=== PATIENT | female | born 1965 | race Caucasian/White ===

== ENCOUNTER 2017-10-10 12:12 | Inpatient (IN) | payer BC, SELFPAY ==
[2017-10-10] VITALS (8 sets, daily range): BP systolic 136–151; BP diastolic 82–91; PULSE 53–93; RESP 18; TEMP 36.5–36.6; O2SAT 95–96; BMI 32.8
--- NOTE | 2017-10-10 12:20 | PCM.HP.STD ---
Problem List (1) NSTEMI (non-ST elevated myocardial infarction) Status: Acute History of Present Illness Date of Admission: 10/10/17 Chief Complaint: chest pain The patient is a 52 year old F no history of coronary artery disease awoke this morning with midsternal chest pain. Was associated with shortness of breath. Patient presented to [place] emergency room. There they did a workup which was unremarkable with the exception of an EKG that showed ST depressions in V2, V3 and V4. They did the backside EKG that showed less than [address] elevations in V7, V8 and V9. Patient received aspirin, nitroglycerin and 80 mg of Lovenox. Patient was transferred to [facility] per her request and lack of intervention at the outside hospital. Patient denies ever having had chest pain like this before. Patient states that her chest pain is currently improved but is still persistent. The chest pain does not radiate anywhere but is midsternal. Patient does endorse that she has been coughing for about the past month but denies that her chest pain is worse with cough. 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 Hypothyroidism E03.9 Insomnia G47.00 Osteoporosis M81.0 Allergies Cephalosporins Adverse Reaction (Verified 10/10/17 11:53) Rash Penicillins Adverse Reaction (Verified 10/10/17 11:53) Rash Home Medications: Ambulatory Orders Medication Instructions Recorded Alendronate Sodium [Alendronate 70 mg PO Q7D 10/10/17 Sodium] Celecoxib [Celecoxib] 100 mg PO BID PRN 10/10/17 Citalopram [Celexa] 20 mg PO DAILY 10/10/17 Cyclobenzaprine 10 mg PO TID PRN 10/10/17 Diazepam [Valium] 5 mg PO BID PRN 10/10/17 Hydrochlorothiazide [Hctz] 25 mg PO DAILY 10/10/17 Levothyroxine Sodium 112 mcg PO DAILY 10/10/17 Loratadine/Pseudoephedrine 5 - 120 mg PO DAILY 10/10/17 [Claritin-D 12 Hour Tablet] Metformin(XR) [Glucophage Xr] 500 mg PO DAILY 10/10/17 Montelukast Sodium [Singulair] 10 mg PO DAILY 10/10/17 Omeprazole [Omeprazole] 40 mg PO DAILY 10/10/17 Potassium Chloride [Klor-Con M20] 20 mg PO DAILY 10/10/17 traZODone [Desyrel] 100 mg PO DAILY 10/10/17 Surgical History: Surgical History (Last Updated 10/10/17 @ 12:28 by Ubaldo Obregon DO) H/O: hysterectomy Z90.710 Hx of cholecystectomy Z90.49 Psychiatric History: Anxiety Lives: Spouse/ Significant Other Smoking Status: Heavy Smoker (>10/day) Tobacco Use: Cigarettes Alcohol: None Drugs: None - *Family History Paternal History Items: Heart Disease Review of Systems Constitutional: Denies: Chills, Fever, Weight Change Eyes: Denies: Blurred vision, Double vision HEENT: Denies: Head Aches, Sinus Congestion, Sinus Drainage Cardiovascular: Reports: Chest Pain, Edema Respiratory: Reports: Shortness of Breath. Denies: Cough, Sputum production Gastrointestinal: Denies: Abdominal Pain, Nausea, Vomiting Genitourinary: Denies: Dysuria Musculoskeletal: Denies: Joint Pain, Joint Tenderness Skin: Denies: Dryness, Jaundice Neurological: Denies: Numbness, Tingling, Focal weakness Psychiatric: Denies: Anxiety, Depression Endocrine: Denies: Change in Body Habitus, Heat/ Cold Intolerance Hematologic/ Lymphatic: Denies: Easy Bruising, Easy Bleeding, Hx of blood clot VTE Information - Inpt Only VTE Present on Admission: No VTE Pharm Prophylaxis ordered?: Yes Patient Problems: Active and Suspected Problems (Last Updated 10/10/17 @ 12:27 by Ubaldo Obregon DO) Unstable angina (Acute) NSTEMI (non-ST elevated myocardial infarction) (Acute) - Physical Exam General: Alert, Cooperative, No apparent distress HEENT: Atraumatic, Normocephalic Oral: Moist Mucosa, No Gingival or Mucosal Lesions/ Ulcerations Neck: No Nodes, Thyroid Normal Size and Texture Lungs: Clear to auscultation, Normal air movement, No rhonchi, No wheeze Cardiovascular: Regular rate, Regular Rhythm, Normal S1, Normal S2, No murmurs Abdomen: Bowel Sounds Present, Soft, Non Tender, Non-Distended, No Hepato-splenomegaly Extremities: No edema, No Calf Tenderness Skin: No rashes, No breakdown Musculoskeletal: No Tenderness to Palpation of Joints or Extremities, No Muscle Wasting Psych/Mental Status: Appropriate, Flat Affect Oxygen Flow Rate (L/min) 2 Oxygen Delivery Method Nasal Cannula Weight: 81.556 kg Body Mass Index (BMI) 32.8 Laboratory Tests Past 24 Hrs 10/10/17 11:32 Troponin I Pending EKG reviewed and showed sinus bradycardia with heart rate of 54. ST depressions in V2 through V6. Reverse leads showed slight ST elevations less than 1 mm in V7, V8 and V9. Chest x-ray showed vague area of increased density over the left midlung could simply be overlapping shadows. CBC showed white count of 12.4, hemoglobin 14.8 and platelets of 203. BMP, creatinine of 1 sodium 139, potassium 4.1, magnesium 1.9. Troponin at [place] was 0.02. Troponin here is 0.854 Assessment/Plan All Active Problems (Last Updated 10/10/17 @ 12:27 by Ubaldo Obregon DO) Unstable angina (Acute) NSTEMI (non-ST elevated myocardial infarction) (Acute) 1. Non-ST elevation myocardial infarction Patient received Lovenox at the outside hospital as well as aspirin and nitroglycerin Patient is still having chest pain at this time but improved I will start patient on Nitropaste to see if that helps alleviate her chest pain. If not, then patient may require a nitroglycerin drip Currently patient be undergoing medical management with therapeutic dosing of Lovenox, metoprolol as her blood pressure and heart rate may allow. Continue to cycle troponins Discussed with Dr. Ramirez EKG findings and then updated via cortex the elevation of the troponins. 2. 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 4. DVT prophylaxis: Patient is anticoagulated. Code Visit OBSV E&M: 96563 Initial observation care L3
--- NOTE | 2017-10-10 12:32 | HP.PCM_ITS ---
Problem List (1) NSTEMI (non-ST elevated myocardial infarction) Status: Acute History of Present Illness Date of Admission: 10/10/17 Chief Complaint: chest pain The patient is a 52 year old F no history of coronary artery disease awoke this morning with midsternal chest pain. Was associated with shortness of breath. Patient presented to [place] emergency room. There they did a workup which was unremarkable with the exception of an EKG that showed ST depressions in V2, V3 and V4. They did the backside EKG that showed less than [address] elevations in V7, V8 and V9. Patient received aspirin, nitroglycerin and 80 mg of Lovenox. Patient was transferred to [facility] per her request and lack of intervention at the outside hospital. Patient denies ever having had chest pain like this before. Patient states that her chest pain is currently improved but is still persistent. The chest pain does not radiate anywhere but is midsternal. Patient does endorse that she has been coughing for about the past month but denies that her chest pain is worse with cough. 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 Hypothyroidism E03.9 Insomnia G47.00 Osteoporosis M81.0 Allergies Cephalosporins Adverse Reaction (Verified 10/10/17 11:53) Rash Penicillins Adverse Reaction (Verified 10/10/17 11:53) Rash Home Medications: Ambulatory Orders Medication Instructions Recorded Alendronate Sodium [Alendronate 70 mg PO Q7D 10/10/17 Sodium] Celecoxib [Celecoxib] 100 mg PO BID PRN 10/10/17 Citalopram [Celexa] 20 mg PO DAILY 10/10/17 Cyclobenzaprine 10 mg PO TID PRN 10/10/17 Diazepam [Valium] 5 mg PO BID PRN 10/10/17 Hydrochlorothiazide [Hctz] 25 mg PO DAILY 10/10/17 Levothyroxine Sodium 112 mcg PO DAILY 10/10/17 Loratadine/Pseudoephedrine 5 - 120 mg PO DAILY 10/10/17 [Claritin-D 12 Hour Tablet] Metformin(XR) [Glucophage Xr] 500 mg PO DAILY 10/10/17 Montelukast Sodium [Singulair] 10 mg PO DAILY 10/10/17 Omeprazole [Omeprazole] 40 mg PO DAILY 10/10/17 Potassium Chloride [Klor-Con M20] 20 mg PO DAILY 10/10/17 traZODone [Desyrel] 100 mg PO DAILY 10/10/17 Surgical History: Surgical History (Last Updated 10/10/17 @ 12:28 by Ubaldo Obregon DO) H/O: hysterectomy Z90.710 Hx of cholecystectomy Z90.49 Psychiatric History: Anxiety Lives: Spouse/ Significant Other Smoking Status: Heavy Smoker (>10/day) Tobacco Use: Cigarettes Alcohol: None Drugs: None - *Family History Paternal History Items: Heart Disease Review of Systems Constitutional: Denies: Chills, Fever, Weight Change Eyes: Denies: Blurred vision, Double vision HEENT: Denies: Head Aches, Sinus Congestion, Sinus Drainage Cardiovascular: Reports: Chest Pain, Edema Respiratory: Reports: Shortness of Breath. Denies: Cough, Sputum production Gastrointestinal: Denies: Abdominal Pain, Nausea, Vomiting Genitourinary: Denies: Dysuria Musculoskeletal: Denies: Joint Pain, Joint Tenderness Skin: Denies: Dryness, Jaundice Neurological: Denies: Numbness, Tingling, Focal weakness Psychiatric: Denies: Anxiety, Depression Endocrine: Denies: Change in Body Habitus, Heat/ Cold Intolerance Hematologic/ Lymphatic: Denies: Easy Bruising, Easy Bleeding, Hx of blood clot VTE Information - Inpt Only VTE Present on Admission: No VTE Pharm Prophylaxis ordered?: Yes Patient Problems: Active and Suspected Problems (Last Updated 10/10/17 @ 12:27 by Ubaldo Obergon DO ) Unstable angina (Acute) NSTEMI (non-ST elevated myocardial infarction) (Acute) - Physical Exam General: Alert, Cooperative, No apparent distress HEENT: Atraumatic, Normocephalic Oral: Moist Mucosa, No Gingival or Mucosal Lesions/ Ulcerations Neck: No Nodes, Thyroid Normal Size and Texture Lungs: Clear to auscultation, Normal air movement, No rhonchi, No wheeze Cardiovascular: Regular rate, Regular Rhythm, Normal S1, Normal S2, No murmurs Abdomen: Bowel Sounds Present, Soft, Non Tender, Non-Distended, No Hepato- splenomegaly Extremities: No edema, No Calf Tenderness Skin: No rashes, No breakdown Musculoskeletal: No Tenderness to Palpation of Joints or Extremities, No Muscle Wasting Psych/Mental Status: Appropriate, Flat Affect Oxygen Flow Rate (L/min) 2 Oxygen Delivery Method Nasal Cannula Weight: 81.556 kg Body Mass Index (BMI) 32.8 Laboratory Tests Past 24 Hrs 10/10/17 11:32 Troponin I Pending EKG reviewed and showed sinus bradycardia with heart rate of 54. ST depressions in V2 through V6. Reverse leads showed slight ST elevations less than 1 mm in V7, V8 and V9. Chest x-ray showed vague area of increased density over the left midlung could simply be overlapping shadows. CBC showed white count of 12.4, hemoglobin 14.8 and platelets of 203. BMP, creatinine of 1 sodium 139, potassium 4.1, magnesium 1.9. Troponin at [place] was 0.02. Troponin here is 0.854 Assessment/Plan All Active Problems (Last Updated 10/10/17 @ 12:27 by Ubaldo Obregon DO) Unstable angina (Acute) NSTEMI (non-ST elevated myocardial infarction) (Acute) 1. Non-ST elevation myocardial infarction * Patient received Lovenox at the outside hospital as well as aspirin and nitroglycerin * Patient is still having chest pain at this time but improved * I will start patient on Nitropaste to see if that helps alleviate her chest pain. If not, then patient may require a nitroglycerin drip * Currently patient be undergoing medical management with therapeutic dosing of Lovenox, metoprolol as her blood pressure and heart rate may allow. Continue to cycle troponins * Discussed with Dr. Ramirez EKG findings and then updated via cortex the elevation of the troponins. 2. 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 4. DVT prophylaxis: Patient is anticoagulated. Code Visit OBSV E&M: 39423 Initial observation care L3
--- NOTE | 2017-10-10 13:05 | EKG12_ITS ---
Test Reason : CP Blood Pressure : / mmHG Vent. Rate : 056 BPM Atrial Rate : 056 BPM P-R Int : 152 ms QRS Dur : 090 ms QT Int : 446 ms P-R-T Axes : 068 072 090 degrees QTc Int : 430 ms Sinus bradycardia with marked sinus arrhythmia Nonspecific ST abnormality Abnormal ECG No previous ECGs available Confirmed by JOSE MANUEL MUÑOZ, SAGE ([id number]), legal editor ANN MABRY ([id number] on 10/14/2017 3:57:53 PM Referred By: SHERRIE Confirmed By:SAGE RICHARD MD
--- NOTE | 2017-10-10 13:15 | PCM.CONS.C ---
Reason for Consult Date of Consultation: 10/10/17 Reason for Consultation: Chest discomfort. History of Present Illness: The patient is a 52 year old F no history of coronary artery disease awoke this morning with midsternal chest pain. Was associated with shortness of breath. Patient presented to [place] emergency room. There they did a workup which was unremarkable with the exception of an EKG that showed ST depressions in V2, V3 and V4. They did the backside EKG that showed less than [address] elevations in V7, V8 and V9. Patient received aspirin, nitroglycerin and 80 mg of Lovenox. Patient was transferred to [facility] per her request and lack of intervention at the outside hospital. Patient denies ever having had chest pain like this before. Patient states that her chest pain is currently improved but is still persistent. The chest pain does not radiate anywhere but is midsternal. Patient does endorse that she has been coughing for about the past month but denies that her chest pain is worse with cough. She has been under a fair amount of stress at home. She denies any previous neck arm or jaw discomfort suggest angina no dizziness or diaphoresis no near syncope or syncope and no palpitations. [ [] Past Medical History Allergies/Adverse Reactions: Allergies Cephalosporins Adverse Reaction (Verified 10/10/17 11:53) Rash Penicillins Adverse Reaction (Verified 10/10/17 11:53) Rash Home Medications: Ambulatory Orders Medication Instructions Recorded Alendronate Sodium [Alendronate 70 mg PO Q7D 10/10/17 Sodium] Celecoxib [Celecoxib] 100 mg PO BID PRN 10/10/17 Citalopram [Celexa] 20 mg PO DAILY 10/10/17 Cyclobenzaprine 10 mg PO TID PRN 10/10/17 Diazepam [Valium] 5 mg PO BID PRN 10/10/17 Hydrochlorothiazide [Hctz] 25 mg PO DAILY 10/10/17 Levothyroxine Sodium 112 mcg PO DAILY 10/10/17 Loratadine/Pseudoephedrine 5 - 120 mg PO DAILY 10/10/17 [Claritin-D 12 Hour Tablet] Metformin(XR) [Glucophage Xr] 500 mg PO DAILY 10/10/17 Montelukast Sodium [Singulair] 10 mg PO DAILY 10/10/17 Omeprazole [Omeprazole] 40 mg PO DAILY 10/10/17 Potassium Chloride [Klor-Con M20] 20 mg PO DAILY 10/10/17 traZODone [Desyrel] 100 mg PO DAILY 10/10/17 Psychiatric History: Anxiety - *Family History Paternal History Items: Heart Disease Lives: Spouse/ Significant Other Smoking Status: Heavy Smoker (>10/day) Tobacco Use: Cigarettes Alcohol: None Drugs: None Review of Systems - Review of Systems General: Denies: Fever, Night Sweats, Fatigue Cardiovascular: Reports: Chest Discomfort at Rest, Shortness of Breath. Denies: Chest Discomfort, Orthopnea, PND, Peripheral Edema, Palpitations, Lightheadedness, Dizziness, Near Syncope, Syncope Respiratory: Denies: Cough, Sputum Production, Hemoptysis Gastrointestinal: Denies: Hematemesis, Hematochezia, Melena Genitourinary: Denies: Dysuria, Hematuria Skin: Denies: Rash Subjectve: Pleasant lady no apparent distress. Objective: Vital Signs Temp Pulse Resp BP Pulse Ox 97.8 F 68 18 136/82 H 96 10/10/17 12:54 10/10/17 12:54 10/10/17 12:54 10/10/17 12:54 10/10/17 12:54 Oxygen Flow Rate (L/min) 2 Oxygen Delivery Method Room Air Weight: 179 lb 12.8 oz Body Mass Index (BMI) 32.8 General: Awake, Alert, Oriented x 3 HEENT: PERRL, EOMI, Sclera Non Icteric Neck: Supple, Good ROM, No Lymph Node Enlargement Lungs: Clear to auscultation Cardiovascular: Regular Rhythm, Normal S1, Normal S2, No Murmurs, No Rubs, No Gallops Vascular: No Carotid Bruits, Normal Femoral Pulses, Normal Radial Pulses, Normal Dorsalis Pedal Pulse, Normal Posterior Tibial Pulses Abdomen: Bowel Sounds Present, Soft, Non Tender, No HSM, No Organomegaly Extremities: No Cyanosis, No Clubbing, No edema Neurological: No Focal Motor or Sensory Deficit 10/10/17 11:32: Troponin I 0.854 H* Rhythm: EKG: Sinus bradycardia with T-wave inversions noted in leads V2 through V4. Assessment/Plan 1. Non-ST elevation myocardial infarction. She presents with new onset chest discomfort with radiation to the right arm. This discomfort together with the EKG changes is suggestive of new onset angina and cardiac troponin enzymes have ruled her in for a non-ST elevation myocardial infarction. My recommendations at this time would be as follows. Aspirin 81 mg Clopidogrel 300 mg now and 75 mg daily With suggest proceeding with cardiac catheterization within the next 24 hours. The risk benefits and alternatives have been explained to her she understands and agrees to proceed. This will be performed in a.m. High intensity statin Routine smoking cessation Lopressor 25 mg twice a day Thank you for allowing me to participate in the care of your patient. Please don't hesitate to call if any issues arise
--- NOTE | 2017-10-10 13:19 | CON.PCM_ITS ---
Reason for Consult Date of Consultation: 10/10/17 Reason for Consultation: Chest discomfort. History of Present Illness: The patient is a 52 year old F no history of coronary artery disease awoke this morning with midsternal chest pain. Was associated with shortness of breath. Patient presented to [place] emergency room. There they did a workup which was unremarkable with the exception of an EKG that showed ST depressions in V2, V3 and V4. They did the backside EKG that showed less than [address] elevations in V7, V8 and V9. Patient received aspirin, nitroglycerin and 80 mg of Lovenox. Patient was transferred to [facility] per her request and lack of intervention at the outside hospital. Patient denies ever having had chest pain like this before. Patient states that her chest pain is currently improved but is still persistent. The chest pain does not radiate anywhere but is midsternal. Patient does endorse that she has been coughing for about the past month but denies that her chest pain is worse with cough. She has been under a fair amount of stress at home. She denies any previous neck arm or jaw discomfort suggest angina no dizziness or diaphoresis no near syncope or syncope and no palpitations. [ [] Past Medical History Allergies/Adverse Reactions: Allergies Cephalosporins Adverse Reaction (Verified 10/10/17 11:53) Rash Penicillins Adverse Reaction (Verified 10/10/17 11:53) Rash Home Medications: Ambulatory Orders Medication Instructions Recorded Alendronate Sodium [Alendronate 70 mg PO Q7D 10/10/17 Sodium] Celecoxib [Celecoxib] 100 mg PO BID PRN 10/10/17 Citalopram [Celexa] 20 mg PO DAILY 10/10/17 Cyclobenzaprine 10 mg PO TID PRN 10/10/17 Diazepam [Valium] 5 mg PO BID PRN 10/10/17 Hydrochlorothiazide [Hctz] 25 mg PO DAILY 10/10/17 Levothyroxine Sodium 112 mcg PO DAILY 10/10/17 Loratadine/Pseudoephedrine 5 - 120 mg PO DAILY 10/10/17 [Claritin-D 12 Hour Tablet] Metformin(XR) [Glucophage Xr] 500 mg PO DAILY 10/10/17 Montelukast Sodium [Singulair] 10 mg PO DAILY 10/10/17 Omeprazole [Omeprazole] 40 mg PO DAILY 10/10/17 Potassium Chloride [Klor-Con M20] 20 mg PO DAILY 10/10/17 traZODone [Desyrel] 100 mg PO DAILY 10/10/17 Psychiatric History: Anxiety - *Family History Paternal History Items: Heart Disease Lives: Spouse/ Significant Other Smoking Status: Heavy Smoker (>10/day) Tobacco Use: Cigarettes Alcohol: None Drugs: None Review of Systems - Review of Systems General: Denies: Fever, Night Sweats, Fatigue Cardiovascular: Reports: Chest Discomfort at Rest, Shortness of Breath. Denies : Chest Discomfort, Orthopnea, PND, Peripheral Edema, Palpitations, Lightheadedness, Dizziness, Near Syncope, Syncope Respiratory: Denies: Cough, Sputum Production, Hemoptysis Gastrointestinal: Denies: Hematemesis, Hematochezia, Melena Genitourinary: Denies: Dysuria, Hematuria Skin: Denies: Rash Subjectve: Pleasant lady no apparent distress. Objective: Vital Signs Temp Pulse Resp BP Pulse Ox 97.8 F 68 18 136/82 H 96 10/10/17 12:54 10/10/17 12:54 10/10/17 12:54 10/10/17 12:54 10/10/17 12:54 Oxygen Flow Rate (L/min) 2 Oxygen Delivery Method Room Air Weight: 179 lb 12.8 oz Body Mass Index (BMI) 32.8 General: Awake, Alert, Oriented x 3 HEENT: PERRL, EOMI, Sclera Non Icteric Neck: Supple, Good ROM, No Lymph Node Enlargement Lungs: Clear to auscultation Cardiovascular: Regular Rhythm, Normal S1, Normal S2, No Murmurs, No Rubs, No Gallops Vascular: No Carotid Bruits, Normal Femoral Pulses, Normal Radial Pulses, Normal Dorsalis Pedal Pulse, Normal Posterior Tibial Pulses Abdomen: Bowel Sounds Present, Soft, Non Tender, No HSM, No Organomegaly Extremities: No Cyanosis, No Clubbing, No edema Neurological: No Focal Motor or Sensory Deficit 10/10/17 11:32: Troponin I 0.854 H* Rhythm: EKG: Sinus bradycardia with T-wave inversions noted in leads V2 through V4. Assessment/Plan 1. Non-ST elevation myocardial infarction. She presents with new onset chest discomfort with radiation to the right arm. This discomfort together with the EKG changes is suggestive of new onset angina and cardiac troponin enzymes have ruled her in for a non-ST elevation myocardial infarction. My recommendations at this time would be as follows. * Aspirin 81 mg * Clopidogrel 300 mg now and 75 mg daily * With suggest proceeding with cardiac catheterization within the next 24 hours. The risk benefits and alternatives have been explained to her she understands and agrees to proceed. This will be performed in a.m. * High intensity statin * Routine smoking cessation * Lopressor 25 mg twice a day * * Thank you for allowing me to participate in the care of your patient. Please don't hesitate to call if any issues arise
[2017-10-10] MEDS: Clopidogrel Bisulfate 300 MG Tablet PO (14:05)
[2017-10-10 15:17] LABS: Anion Gap 7 (5-15); BUN 20 mg/dL (7-18); BUN/Creat Ratio 20.4 RATIO (10-20); Calcium,Total 8.7 mg/dL (8.5-10.1); Chloride 105 mmol/L (98-107); Creatinine, Serum 0.98 mg/dL (0.55-1.02); EST Glomerular Filtration Rate 63 mL/min (>60); Est Glom Filt Rate - Afr Amer 76 mL/min (>60); Glucose 167 mg/dL (74-106); Potassium 4.1 mmol/L (3.5-5.1); Sodium Level 138 mmol/L (136-145)
[2017-10-10] MEDS: Nitroglycerin Oint 1 INCH PACKET TRANSDERM. ×2 (15:17→17:34)
[2017-10-10] MEDS: Acetaminophen 325 MG Tablet 650 MG PO (19:51)
[2017-10-10 22:26] LABS: Bedside Glucose 137 mg/dL (70-110)
[2017-10-10] MEDS: Enoxaparin 80 MG/0.8 ML Syringe SC (22:26)
[2017-10-10] MEDS: Metoprolol Tartrate 25 MG Tablet PO (22:26)
[2017-10-10] MEDS: traZODone 100 MG Tablet PO (22:26)
[2017-10-11] VITALS (39 sets, daily range): BP systolic 102–176; BP diastolic 65–155; PULSE 63–105; RESP 12–26; TEMP 36.5–37.1; O2SAT 93–98
[2017-10-11] MEDS: Nitroglycerin Oint 1 INCH PACKET TRANSDERM. ×4 (00:06→23:07)
[2017-10-11] MEDS: Acetaminophen 325 MG Tablet 650 MG PO (02:20)
[2017-10-11 05:34] LABS: Bacteria 0 SEEN /hpf (None Seen); White Blood Cells 0 SEEN /hpf (0-5)
[2017-10-11 05:39] LABS: Color, Urine Yellow (Yellow); Glucose, Dipstick Normal (Normal); Ketone-Dipstick Negative (Negative); Leukocyte Esterase-Dipstick Negative /ul (Negative); Nitrite-Dipstick Negative (Negative); Occult Blood-Urine 10 /ul (Negative); Protein-Dipstick Negative (Negative); Urine Bilirubin Dipstick Negative (Negative); Urine Clarity Clear (Clear); Urine Urobilinogen Normal (Normal)
[2017-10-11 05:53] LABS: Mucous, Urine 1+ /hpf (<or=2+); Red Blood Cells-Urine 0-5 SEEN /hpf (0-5); Squamous Epithelial Cells - UA 0-5 SEEN /hpf (5-10)
[2017-10-11 05:55] LABS: International Normalized Ratio 1.1
--- NOTE | 2017-10-11 05:55 | RAD_ITS ---
STUDY: X-RAY CHEST REASON FOR EXAM: Female, 52 years old. Chest pain, pre heart catheter TECHNIQUE: Single AP portable view of the chest. COMPARISON: None. FINDINGS: There are superimposed monitor leads. There are areas of hyperinflation. There is no focal parenchymal abnormality. There is no demonstrated pleural abnormality. Normal size heart. Normal mediastinum and jazlyn. Normal visualized pulmonary arteries. There is atherosclerotic calcification of the aortic arch with tortuosity. There are diffuse degenerative changes of the visualized thoracic spine. Normal visualized ribs, clavicles, and shoulders. There is no demonstrated abnormality of the visualized soft tissue structures of the upper abdomen. RAD/Chest 1 View IMPRESSION: Hyperinflation, compatible with post obstruction suspected. No pulmonary edema, congestive heart failure or confluent pneumonia. Electronically Signed: Anjelica Sesay MD at 6:14 EDT , Service support ,
[2017-10-11 05:56] LABS: Partial Thromboplast Time 37.2 Seconds (24.1-36.2)
[2017-10-11 06:02] LABS: Hematocrit 44.2 % (37-47); Hemoglobin 14.9 g/dl (12.0-15.0); Mean Corp Hgb Conc 33.7 g/gl (32-36); Mean Corpuscular Hgb 31.6 pg (27.0-32.0); Mean Corpuscular Volume 93.6 fL (81-99); Mean Platelet Vol. 11.4 fl (6.2-12.0); Platelet Count 190 K/mm3 (150-450); RBC Distribution Width CV 13.1 % (11.6-14.6); RBC Distribution Width SD 44.8 fl (35.1-43.9); Red Blood Count 4.72 M/mm3 (4.2-5.4); White Blood Count 11.3 K/mm3 (4.4-11.0)
[2017-10-11] MEDS: Levothyroxine 112 MCG Tablet PO (06:04)
[2017-10-11] MEDS: Metoprolol Tartrate 25 MG Tablet PO ×2 (06:05→21:15)
[2017-10-11] MEDS: Aspirin E.C. 81 MG Tablet PO (06:05)
[2017-10-11 06:11] LABS: Bedside Glucose 151 mg/dL (70-110)
[2017-10-11 06:19] LABS: Scan Indicated on CBC? Y/N NO
[2017-10-11] MEDS: Clopidogrel Bisulfate 75 MG Tablet PO (06:26)
[2017-10-11 06:30] LABS: AST(SGOT) 272 U/L (15-37); Alanine Aminotransfer ALT/SGPT 61 U/L (13-56); Albumin, Serum 3.1 g/dL (3.2-5.0); Alkaline Phosphatase 36 U/L (45-117); Anion Gap 8 (5-15); BUN 15 mg/dL (7-18); BUN/Creat Ratio 17.5 RATIO (10-20); Calcium,Total 8.6 mg/dL (8.5-10.1); Chloride 107 mmol/L (98-107); Cholesterol 159 mg/dL (200); Creatinine, Serum 0.86 mg/dL (0.55-1.02); EST Glomerular Filtration Rate 74 mL/min (>60); Est Glom Filt Rate - Afr Amer 89 mL/min (>60); Estimated Creatinine Clearance 59.15 ml/min; Globulin 3.1 g/dL (2.2-4.2); Glucose 141 mg/dL (74-106); High Density Lipoprotein 50 mg/dL; Protein, Total 6.2 g/dL (6.4-8.2); Sodium Level 144 mmol/L (136-145); Triglycerides 131 mg/dL; Very Low Density Lipoprotein 26 mg/dL (5-40)
[2017-10-11] MEDS: Albuterol 2.5 MG/3 ML VIAL.NEB. INHALATION ×4 (06:48→20:14)
--- NOTE | 2017-10-11 08:12 | PCM.PN.CARD ---
Subjectve: Patient seen and evaluated. Objective: Vital Signs Temp Pulse Resp BP Pulse Ox 97.7 F L 67 16 109/72 93 10/11/17 05:56 10/11/17 07:18 10/11/17 06:48 10/11/17 06:05 10/11/17 06:48 Oxygen Flow Rate (L/min) 2 Oxygen Delivery Method Room Air Weight: 179 lb 12.8 oz Body Mass Index (BMI) 32.8 Intake and Output for Last 24 Hours 10/09/17 10/10/17 10/11/17 23:59 23:59 23:59 Intake Total 120 / 120 420 / 420 Balance 120 / 120 420 / 420 General: Awake, Alert, Oriented x 3 HEENT: PERRL, EOMI, Sclera Non Icteric Neck: Supple, Good ROM, No Lymph Node Enlargement Lungs: Clear to auscultation Cardiovascular: Regular Rhythm, Normal S1, Normal S2, No Murmurs, No Rubs, No Gallops Vascular: No Carotid Bruits, Normal Femoral Pulses, Normal Radial Pulses, Normal Dorsalis Pedal Pulse, Normal Posterior Tibial Pulses Abdomen: Bowel Sounds Present, Soft, Non Tender, No HSM, No Organomegaly Extremities: No Cyanosis, No Clubbing, No edema Neurological: No Focal Motor or Sensory Deficit 10/10/17 11:32: Troponin I 0.854 H* 10/10/17 14:30: Troponin I 6.940 H* 10/10/17 14:30: Sodium 138, Potassium 4.1, Chloride 105, Carbon Dioxide 26.0, Anion Gap 7, BUN 20 H, Creatinine 0.98, Est GFR (MDRD) Af Amer 76, Est GFR (MDRD) Non-Af 63, BUN/Creatinine Ratio 20.4 H, Glucose 167 H, Calcium 8.7 10/10/17 17:28: Troponin I 34.700 H* 10/11/17 04:45: WBC 11.3 H, RBC 4.72, Hgb 14.9, Hct 44.2, MCV 93.6, MCH 31.6, MCHC 33.7, RDW 13.1, RDW Differential 44.8 H, Plt Count 190, MPV 11.4 10/11/17 04:45: Sodium 144, Potassium 4.0, Chloride 107, Carbon Dioxide 29.0, Anion Gap 8, BUN 15, Creatinine 0.86, Est GFR (MDRD) Af Amer 89, Est GFR (MDRD) Non-Af 74, BUN/Creatinine Ratio 17.5, Glucose 141 H, Calcium 8.6, Total Bilirubin 0.50, Triglycerides 131, Cholesterol 159, LDL Cholesterol 83, VLDL Cholesterol 26, HDL Cholesterol 50 10/11/17 04:45: PT 14.0, INR 1.1, APTT 37.2 H 10/11/17 05:10: Urine Color Yellow, Urine Clarity Clear, Urine pH 5.0, Ur Specific [place] 1.020, Urine Protein Negative, Urine Glucose (UA) Normal, Urine Ketones Negative, Urine Occult Blood 10 H, Urine Nitrite Negative, Urine Bilirubin Negative, Urine Urobilinogen Normal, Ur Leukocyte Esterase Negative, Urine RBC 0-5 SEEN, Urine WBC 0 SEEN Rhythm: EKG: ECHO: Stress Test: Cardiac Cath: PCI: CT Surgery: Holter monitor: EPS: PPM: CXR: Chest CT Scan: Medical Necessity - Tobacco Use Smoking Status: Current every day smoker Tobacco Use: Cigarettes Assessment/Plan 1. Non-ST elevation myocardial infarction. She presents with new onset chest discomfort with radiation to the right arm. This discomfort together with the EKG changes is suggestive of new onset angina and cardiac troponin enzymes have ruled her in for a non-ST elevation myocardial infarction. Patient underwent cardiac catheterization which demonstrated the following: Normal left main coronary artery. Left anterior descending artery with no significant disease. Left circumflex artery with large first obtuse marginal branch with proximal 80% stenosis and mid 90% stenosis. Dominant left circumflex artery with distal 75% stenosis. Nondominant right coronary artery. Reduced left ventricular systolic function with estimated ejection fraction of 40% and anterolateral hypokinesis. My recommendations at this time would be as follows. Aspirin 81 mg Clopidogrel 300 mg now and 75 mg daily High intensity statin Routine smoking cessation Lopressor 25 mg twice a day Patient would undergo angioplasty and stenting of the OM this morning and evaluation of the distal circumflex for possible angioplasty. Thank you for allowing me to participate in the care of your patient. Please don't hesitate to call if any issues arise
--- NOTE | 2017-10-11 08:15 | PN.CARD_ITS ---
Subjectve: Patient seen and evaluated. Objective: Vital Signs Temp Pulse Resp BP Pulse Ox 97.7 F L 67 16 109/72 93 10/11/17 05:56 10/11/17 07:18 10/11/17 06:48 10/11/17 06:05 10/11/17 06:48 Oxygen Flow Rate (L/min) 2 Oxygen Delivery Method Room Air Weight: 179 lb 12.8 oz Body Mass Index (BMI) 32.8 Intake and Output for Last 24 Hours 10/09/17 10/10/17 10/11/17 23:59 23:59 23:59 Intake Total 120 / 120 420 / 420 Balance 120 / 120 420 / 420 General: Awake, Alert, Oriented x 3 HEENT: PERRL, EOMI, Sclera Non Icteric Neck: Supple, Good ROM, No Lymph Node Enlargement Lungs: Clear to auscultation Cardiovascular: Regular Rhythm, Normal S1, Normal S2, No Murmurs, No Rubs, No Gallops Vascular: No Carotid Bruits, Normal Femoral Pulses, Normal Radial Pulses, Normal Dorsalis Pedal Pulse, Normal Posterior Tibial Pulses Abdomen: Bowel Sounds Present, Soft, Non Tender, No HSM, No Organomegaly Extremities: No Cyanosis, No Clubbing, No edema Neurological: No Focal Motor or Sensory Deficit 10/10/17 11:32: Troponin I 0.854 H* 10/10/17 14:30: Troponin I 6.940 H* 10/10/17 14:30: Sodium 138, Potassium 4.1, Chloride 105, Carbon Dioxide 26.0, Anion Gap 7, BUN 20 H, Creatinine 0.98, Est GFR (MDRD) Af Amer 76, Est GFR (MDRD ) Non-Af 63, BUN/Creatinine Ratio 20.4 H, Glucose 167 H, Calcium 8.7 10/10/17 17:28: Troponin I 34.700 H* 10/11/17 04:45: WBC 11.3 H, RBC 4.72, Hgb 14.9, Hct 44.2, MCV 93.6, MCH 31.6, MCHC 33.7, RDW 13.1, RDW Differential 44.8 H, Plt Count 190, MPV 11.4 10/11/17 04:45: Sodium 144, Potassium 4.0, Chloride 107, Carbon Dioxide 29.0, Anion Gap 8, BUN 15, Creatinine 0.86, Est GFR (MDRD) Af Amer 89, Est GFR (MDRD) Non-Af 74, BUN/Creatinine Ratio 17.5, Glucose 141 H, Calcium 8.6, Total Bilirubin 0.50, Triglycerides 131, Cholesterol 159, LDL Cholesterol 83, VLDL Cholesterol 26, HDL Cholesterol 50 10/11/17 04:45: PT 14.0, INR 1.1, APTT 37.2 H 10/11/17 05:10: Urine Color Yellow, Urine Clarity Clear, Urine pH 5.0, Ur Specific [place] 1.020, Urine Protein Negative, Urine Glucose (UA) Normal, Urine Ketones Negative, Urine Occult Blood 10 H, Urine Nitrite Negative, Urine Bilirubin Negative, Urine Urobilinogen Normal, Ur Leukocyte Esterase Negative, Urine RBC 0-5 SEEN, Urine WBC 0 SEEN Rhythm: EKG: ECHO: Stress Test: Cardiac Cath: PCI: CT Surgery: Holter monitor: EPS: PPM: CXR: Chest CT Scan: Medical Necessity - Tobacco Use Smoking Status: Current every day smoker Tobacco Use: Cigarettes Assessment/Plan 1. Non-ST elevation myocardial infarction. She presents with new onset chest discomfort with radiation to the right arm. This discomfort together with the EKG changes is suggestive of new onset angina and cardiac troponin enzymes have ruled her in for a non-ST elevation myocardial infarction. Patient underwent cardiac catheterization which demonstrated the following: Normal left main coronary artery. Left anterior descending artery with no significant disease. Left circumflex artery with large first obtuse marginal branch with proximal 80 % stenosis and mid 90% stenosis. Dominant left circumflex artery with distal 75% stenosis. Nondominant right coronary artery. Reduced left ventricular systolic function with estimated ejection fraction of 40% and anterolateral hypokinesis. My recommendations at this time would be as follows. * Aspirin 81 mg * Clopidogrel 300 mg now and 75 mg daily * High intensity statin * Routine smoking cessation * Lopressor 25 mg twice a day * * * Patient would undergo angioplasty and stenting of the OM this morning and evaluation of the distal circumflex for possible angioplasty. * Thank you for allowing me to participate in the care of your patient. Please don't hesitate to call if any issues arise
[2017-10-11 08:56] LABS: ACT Activated Clotting Time 213 sec (74-137)
--- NOTE | 2017-10-11 09:00 | EKG12_ITS ---
Test Reason : POST PCI Blood Pressure : / mmHG Vent. Rate : 065 BPM Atrial Rate : 065 BPM P-R Int : 140 ms QRS Dur : 084 ms QT Int : 446 ms P-R-T Axes : 072 071 086 degrees QTc Int : 463 ms Normal sinus rhythm Nonspecific ST abnormality Abnormal ECG When compared with ECG of 10-OCT-2017 11:13, MANUAL COMPARISON REQUIRED, DATA IS UNCONFIRMED Confirmed by JOSE MANUEL MUÑOZ, SAGE ([id number]), editorial manager ANN MABRY ([id number]) on 10/19/2017 1:12:04 PM Referred By: PERLITA Confirmed By:SAGE RICHARD MD
--- NOTE | 2017-10-11 09:10 | CASEMGMT ---
According to the [place] website, the following are in-network tertiary facilities: [facility], [facility], [place], [facility], [facility], [facility], [facility], and . Cady BECKFORD CM
--- NOTE | 2017-10-11 09:12 | CL.I_ITS ---
Patient Name: PETER KESSLER Study Date: 10/11/2017 Performing: Rodney Rivera MD Ht: 62 inches 157 cm : 1965 Wt: 181 lbs 82 kg Age: 52 Gender: female BSA: 1.83 PROCEDURE(S) PERFORMED [id number] W OR WO PTCA, SINGLE CORONARY ARTERY [id number] W OR WO PTCA, EACH ADD'L ARTERY, SAME MAJOR CLINICAL PROFILE AND CO-MORBIDITIES Indications: ACS > 24 hrs, New Onset Angina <= 2 months, Suspected CAD Heart Failure: None Stress/Imaging Stress/Image Study Performed: No Angina Classification Anginal Classification w/in 2 Weeks: CCS IV CAD Presentations: Non-STEMI. Symptom onset Date/Time: 10/10/2017 Time Not Available Comorbidities/Risk Factors: Current/Recent Smoker (< 1year) Hypertension Dyslipidemia Family History of Premature CAD CONCLUSIONS Successful PTCA/JENIFFER of the distal LCX with a 2.25 x 12 Promus Synergy; 75%-->0%, no dissection. Successful PTCA/JENIFFER of the proximal OM#1 with a 2.5 x 24 Promus Synergy, post dilated througout with a 2.5 x 12 NC balloon; 85%-->0%. No dissection. Unable to close RFA due to small nature of femoral vessels. RECOMMENDATIONS Highly recommend quitting all tobacco products Follow up with primary revenue field auditor Risk factor modification ASA Indefinitley Plavix for at least 12 months Routine post interventional care Refer for Outpatient Cardiac Rehab Manual sheath removal per protocol Follow up with Dr. Ramirez DESCRIPTION OF PROCEDURE The patient arrived to the procedure lab. The risks and benefits of the procedure as well as a full d escription of our services here and current unavailability of surgical backup were fully explained to the patient and/or their significant other prior to the catheterization. The Timeout was completed, verifying the correct patient and procedure. The patient's procedural site was prepped and draped in the usual fashion. Local anesthetic was given subcutaneously to right groin region with Lidocaine 2% Using a modified Seldinger technique,arterial access was obtained via the right femoral artery, a 5Fr sheath was inserted. Left Coronary Artery selective angiography was performed in multiple views usin g a 5 Fr. JL4 catheter. Right Coronary Artery selective angiography was then performed in multiple vi ews using a 5 Fr. 3DRC (Jurgen) catheter. Left Ventriculography was performed in LOPEZ projection usi ng a 5 Fr. Pigtail catheter. LV to AO pullback pressures were then recorded.The images were reviewed and options discussed. A decision was then made to proceed with an Intervention, IVUS or other adjunc t procedure. Arterial sheath was exchanged for a 6 Fr Sheath. Angiogram performed pre balloon dilatation. EDU 3.5 Guide catheter was inserted and engaged into the LCA. BMW Guide wire was advanced to the Circumflex. Emerge 2.0x 12 Balloon catheter was inserted. Balloon catheter was advanced across lesion in the circ umflex, distal. PTCA balloon inflated at 6 atms for 40 secs. Angiogram performed post balloon dilatat ion. PTCA balloon inflated at 6 atms for 7 secs. 2.25 x 12 Synergy Drug Eluting stent was inserted. D rug Eluting stent was advanced across the lesion in the circumflex, distal. Angiogram performed pre s tent deployment. BMW Guide wire was repositioned to the 1st OM Angiogram performed pre balloon dilata tion. 2.0 x 12 Emerge Balloon catheter was inserted. Balloon catheter was advanced across lesion in t he first obtuse marginal, proximal. PTCA balloon inflated at 6 atms for 8 secs. Angiogram performed p ost balloon dilatation. 2.5 x 24 Synergy Drug Eluting stent was inserted. Drug Eluting stent was adva nced across the lesion in the first obtuse marginal, proximal. Angiogram performed post stent deploym ent. 2.5 x 12 NC Emerge Balloon catheter was inserted. Balloon catheter was inserted post stent. Mirna ogram performed post balloon dilatation. Angiogram performed post balloon dilatation. Contrast was in jected through the sheath and the Right Iliac and Femoral artery were assessed for possible closure d evice. The arterial sheath was sutured in place and capped INTERVENTION INFORMATION LESION SITE: Circumflex (Distal) Lesion Complexity: Non-High/Non-C, lesion at bifurcation: No, thrombus present: No, culprit lesion: N o Pre Stenosis: 75 % Pre intervention SHAUN flow: 3 PROCEDURE: Drug Eluting Stent with pre and post dilatation Post Stenosis: 0 % Post intervention SHAUN flow: 3 Lesion Devices: Muxlimtronic 6 Fr EBU3.5 100cm Guide Catheter [place] .014 BMW [place] Straight 190cm Caio Sci EMERGE MR 2.00x12 BALLOON Caio Sci Synergy MR JENIFFER 2.25x12 LESION SITE: 1st OM (Proximal) Lesion Complexity: High/C, lesion at bifurcation: No, thrombus present: No, lesion length: 24 mm, cul prit lesion: Yes Pre Stenosis: 85 % Pre intervention SHAUN flow: 3 PROCEDURE: Drug Eluting Stent with pre and post dilatation Post Stenosis: 0 % Post intervention SHAUN flow: 3 Lesion Devices: Medtronic 6 Fr EBU3.5 100cm Guide Catheter [place] .014 BMW [place] Straight 190cm Caio Sci EMERGE MR 2.00x12 BALLOON Caio Sci Synergy MR JENIFFER 2.50x24 Caio Sci NC EMERGE MR 2.50x12 BALLOON COMPLICATIONS No Complications PROCEDURE MEDICATIONS Versed 1 mg IV Oxygen: 2 L/min via nasal cannula Heparin 6000 unit(s) IV 10/11/2017 08:16:00 Nitro 200 mcg IC 10/11/2017 08:18:19 Nitro 200 mcg IC 10/11/2017 08:18:19 Nitro 200 mcg IC 10/11/2017 08:22:56 Nitro 200 mcg IC 10/11/2017 08:33:31 IV Fluids: .9 NaCl increased to WO ml/hr 10/11/2017 08:27:43 SUMMARY OF HEMODYNAMIC DATA Time AIR REST ECG 07:35:52 AO 113/76 (94) SA 07:56:21 LV 114/6, 13 08:02:09 LV 117/8, 12 08:02:16 LV 110/0, 12 08:03:12 LV 115/0, 16 08:03:19 LVp 116/-2, 20 08:03:22 AOp 113/68 (89) 08:03:27 Signed By Rodney Rivera MD On 10/11/2017 09:12:11 Rodney Rivera MD
--- NOTE | 2017-10-11 09:29 | CL.D_ITS ---
Patient Name: PETER KESSLER Study Date: 10/11/2017 Performing: Wilbur Ramirez MD Ht: 62 inches 157 cm : 1965 Wt: 181 lbs 82 kg Age: 52 Gender: female BSA: 1.83 PROCEDURE(S) PERFORMED [id number] W OR WO PTCA, SINGLE CORONARY ARTERY [id number] W OR WO PTCA, EACH ADD'L ARTERY, SAME MAJOR CLINICAL PROFILE AND INDICATIONS Indications: ACS > 24 hrs, New Onset Angina <= 2 months, Suspected CAD, ACS <= 24 hrs Heart Failure: None Stress/Imaging Stress/Image Study Performed: No Stress/Image Study Performed: No Angina Classification Anginal Classification w/in 2 Weeks: CCS IV CAD Presentations: Non-STEMI. Symptom onset Date/Time: 10/10/2017 Time Not Available Comorbidities/Risk Factors: Current/Recent Smoker (< 1year) Hypertension Dyslipidemia Family History of Premature CAD CONCLUSIONS Significant left circumflex disease and a dominant circumflex artery involving the first obtuse guille nal branch and the distal circumflex artery. RECOMMENDATIONS Referred for immediate PCI DESCRIPTION OF PROCEDURE The patient arrived to the procedure lab. The risks and benefits of the procedure as well as a full d escription of our services here and current unavailability of surgical backup were fully explained to the patient and/or their significant other prior to the catheterization. The Timeout was completed, verifying the correct patient and procedure. The patient's procedural site was prepped and draped in the usual fashion. Local anesthetic was given subcutaneously to right groin region with Lidocaine 2%. Using a modified Seldinger technique, arterial access was obtained via the right femoral artery, a 5 Fr sheath was inserted. Left Coronary Artery selective angiography was performed in multiple views u sing a 5 Fr. JL4 catheter. Right Coronary Artery selective angiography was then performed in multiple views using a 5 Fr. 3DRC (Jurgen) catheter. Left Ventriculography was performed in LOPEZ projection using a 5 Fr. Pigtail catheter. LV to AO pullback pressures were then recorded.Contrast was injected through the sheath and the Right Iliac and Femoral artery were assessed for possible closure device.T he arterial sheath was sutured in place and capped CORONARY ANGIOGRAPHY DOMINANCE: Left Dominant LEFT HEART ASSESSMENT Left Ventricular Ejection Fraction: by LV Gram 40 lateral hypokinesis % Lateral Hypokinesis - Moderate Depressed Left Ventricular systolic function LEFT MAIN: Angiographically normal LEFT ANTERIOR DECENDING ARTERY: Non-obstructive CIRCUMFLEX ARTERY: DISTAL CIRC: 75 % Stenosis OM 1: Proximal - 80 hazy % Stenosis, Mid - 90 % Stenosis RIGHT CORONARY ARTERY: Angiographically normal COMPLICATIONS No Complications PROCEDURE MEDICATIONS Versed 1 mg IV Oxygen: 2 L/min via nasal cannula Heparin 6000 unit(s) IV 10/11/2017 08:16:00 Nitro 200 mcg IC 10/11/2017 08:18:19 Nitro 200 mcg IC 10/11/2017 08:18:19 Nitro 200 mcg IC 10/11/2017 08:22:56 Nitro 200 mcg IC 10/11/2017 08:33:31 IV Fluids: .9 NaCl increased to WO ml/hr 10/11/2017 08:27:43 SUMMARY OF HEMODYNAMIC DATA Time AIR REST ECG 07:35:52 AO 113/76 (94) SA 07:56:21 LV 114/6, 13 08:02:09 LV 117/8, 12 08:02:16 LV 110/0, 12 08:03:12 LV 115/0, 16 08:03:19 LVp 116/-2, 20 08:03:22 AOp 113/68 (89) 08:03:27 Signed By Wilbur Ramirez MD On 10/11/2017 09:28:49 Wilbur Ramirez MD
[2017-10-11 10:10] LABS: CPK Total, Creatine Kinase 1055 U/L (26-192)
[2017-10-11 11:10] LABS: ACT Activated Clotting Time 147 sec (74-137)
[2017-10-11] MEDS: 0.9% Normal Saline 1,000 ML 150 ML IV (11:50)
[2017-10-11 12:31] LABS: CPK Total, Creatine Kinase 889 U/L (26-192)
--- NOTE | 2017-10-11 12:41 | PCM.PN.HOSP ---
Patient Problems: Active and Suspected Problems (Last Updated 10/10/17 @ 12:27 by Ubaldo Obregon DO) Unstable angina (Acute) NSTEMI (non-ST elevated myocardial infarction) (Acute) Subjective: s/p PCI. Currently on bedrest and without complaints. Vitals/I&O's: Vital Signs Temp Pulse Resp BP Pulse Ox 36.5 C L 74 13 130/82 H 95 10/11/17 09:05 10/11/17 10:30 10/11/17 10:30 10/11/17 10:30 10/11/17 10:30 Oxygen Flow Rate (L/min) 2 Oxygen Delivery Method Room Air Weight: 81.556 kg Body Mass Index (BMI) 32.8 Intake and Output for Last 24 Hours 10/09/17 10/10/17 10/11/17 23:59 23:59 23:59 Intake Total 120 / 120 420 / 420 Balance 120 / 120 420 / 420 General: Alert, No apparent distress HEENT: Atraumatic, Normocephalic Oral: Moist Mucosa, No Gingival or Mucosal Lesions/ Ulcerations Neck: No Nodes, Thyroid Normal Size and Texture Lungs: Clear to auscultation, Normal air movement, No rhonchi, No wheeze Cardiovascular: Regular rate, Regular Rhythm, Normal S1, Normal S2 Abdomen: Bowel Sounds Present, Soft, Non Tender, Non-Distended, No Hepato-splenomegaly Extremities: No edema, No Calf Tenderness Laboratory Results 10/10/17 14:30: Troponin I 6.940 H* 10/10/17 14:30: Sodium 138, Potassium 4.1, Chloride 105, Carbon Dioxide 26.0, Anion Gap 7, BUN 20 H, Creatinine 0.98, Estim Creat Clear Calc 51.90, Est GFR (MDRD) Af Amer 76, Est GFR (MDRD) Non-Af 63, BUN/Creatinine Ratio 20.4 H, Glucose 167 H, Calcium 8.7 10/10/17 17:28: Troponin I 34.700 H* 10/10/17 22:16: POC Glucose 137 H 10/11/17 04:45: WBC 11.3 H, RBC 4.72, Hgb 14.9, Hct 44.2, MCV 93.6, MCH 31.6, MCHC 33.7, RDW 13.1, RDW Differential 44.8 H, Plt Count 190, MPV 11.4 10/11/17 04:45: Sodium 144, Potassium 4.0, Chloride 107, Carbon Dioxide 29.0, Anion Gap 8, BUN 15, Creatinine 0.86, Estim Creat Clear Calc 59.15, Est GFR (MDRD) Af Amer 89, Est GFR (MDRD) Non-Af 74, BUN/Creatinine Ratio 17.5, Glucose 141 H, Calcium 8.6, Total Bilirubin 0.50, AST 272 H, ALT 61 H, Alkaline Phosphatase 36 L, Total Protein 6.2 L, Albumin 3.1 L, Globulin 3.1, Albumin/Globulin Ratio 1.0, Triglycerides 131, Cholesterol 159, LDL Cholesterol 83, VLDL Cholesterol 26, HDL Cholesterol 50 10/11/17 04:45: PT 14.0, INR 1.1, APTT 37.2 H 10/11/17 05:10: Urine Color Yellow, Urine Clarity Clear, Urine pH 5.0, Ur Specific [place] 1.020, Urine Protein Negative, Urine Glucose (UA) Normal, Urine Ketones Negative, Urine Occult Blood 10 H, Urine Nitrite Negative, Urine Bilirubin Negative, Urine Urobilinogen Normal, Ur Leukocyte Esterase Negative, Urine RBC 0-5 SEEN, Urine WBC 0 SEEN, Ur Squamous Epith Cells 0-5 SEEN, Urine Bacteria 0 SEEN, Urine Mucus 1+ 10/11/17 05:53: POC Glucose 151 H 10/11/17 08:45: Activated Clotting Time 213 H 10/11/17 09:15: Total Creatine Kinase 1055 H 10/11/17 11:01: Activated Clotting Time 147 H 10/11/17 12:00: Total Creatine Kinase 889 H Current Medications Acetaminophen (Tylenol) 650 mg PO Q6H PRN PRN PRN Reason: Mild Pain (1-3)/Temp > 100.7 F Last Admin: 10/11/17 02:20 Dose: 650 mg Acetaminophen (Tylenol) 650 mg PO Q6H PRN PRN PRN Reason: Mild Pain (0-2/10) Albuterol Sulfate (Ventolin Aerosols) 2.5 mg INHALATION Q4H PRN PRN PRN Reason: Asthma Albuterol Sulfate (Ventolin Aerosols) 2.5 mg INHALATION Q6HWA.RT WICHO Last Admin: 07/02/18 06:48 Dose: 2.5 mg Alendronate Sodium (Fosamax) 70 mg PO Q7D [facility] Last Admin: 10/10/17 14:05 Dose: Not Given Aspirin (Ecotrin) 81 mg PO DAILY@0800 [facility] Last Admin: 10/11/17 06:05 Dose: 81 mg Atorvastatin Calcium (Lipitor) 80 mg PO QHS [facility] Atropine Sulfate () 0.5 mg IV UD PRN PRN Reason: HR <50 bpm Citalopram Hydrobromide (Celexa) 20 mg PO DAILY [facility] Clopidogrel Bisulfate (Plavix) 75 mg PO DAILY [facility] Last Admin: 10/11/17 06:26 Dose: 75 mg Cyclobenzaprine HCl (Flexeril) 10 mg PO TID PRN PRN Reason: SPASMS Dextrose (D50w Syringe) 0 gm IV X1 PRN; Protocol PRN Reason: Hypoglycemia Diazepam (Valium) 5 mg PO BID PRN PRN Reason: ANXIETY Glucagon () 1 mg IM .X1 PRN PRN Reason: Hypoglycemia Hydrochlorothiazide (Hctz) 25 mg PO DAILY [facility] Sodium Chloride () 1,000 mls @ 0 mls/hr IV .Q0M [facility] PRN Reason: KVO Sodium Chloride () 1,000 mls @ 150 mls/hr IV .Q6H40M [facility] Stop: 10/11/17 15:34 Insulin Human Lispro (Humalog Kwikpen (Bkc)) 0 unit SQ TIDAC [facility] PRN Reason: Protocol Last Admin: 10/10/17 16:36 Dose: Not Given Levothyroxine Sodium (Synthroid) 112 mcg PO DAILY@0600 [facility] Last Admin: 10/11/17 06:04 Dose: 112 mcg Magnesium Hydroxide (Milk Of Magnesia) 30 ml PO DAILY PRN PRN Reason: Constipation Metoprolol Tartrate (Lopressor (Beta Alisha)) 25 mg PO BID [facility] Last Admin: 10/11/17 06:05 Dose: 25 mg Montelukast Sodium (Singulair) 10 mg PO DAILY [facility] Morphine Sulfate () 2 - 4 mg IV Q4H PRN PRN PRN Reason: MOD-SEVERE PAIN (4-10/10) Morphine Sulfate () 2 - 4 mg IV Q4H PRN PRN PRN Reason: MOD-SEVERE PAIN (4-10/10) Morphine Sulfate () 2 mg IV Q4H PRN PRN PRN Reason: Mild back pain (0-2/10) Nitroglycerin (Nitrobid) 1 inch TRANSDERM. Q6 [facility] Last Admin: 10/11/17 06:06 Dose: 1 inch Ondansetron HCl (Zofran) 4 mg IV Q8H PRN PRN PRN Reason: NAUSEA Oxycodone HCl (Oxyir) 5 - 10 mg PO Q4H PRN PRN PRN Reason: MOD-SEVERE PAIN (4-10/10) Pantoprazole Sodium (Protonix) 40 mg PO DAILY [facility] Potassium Chloride (K-Dur) 20 meq PO DAILYCM [facility] Prednisone () 5 mg PO DAILY@0800 [facility] Sodium Chloride () 5 - 30 ml IV UD PRN PRN Reason: SALINE FLUSH Sodium Chloride () 500 ml IV BOLUS PRN PRN Reason: VASO-VAGAL PROTOCOL Trazodone HCl (Desyrel) 100 mg PO QHS [facility] Medical Necessity - Tobacco Use Smoking Status: Current every day smoker Tobacco Use: Cigarettes Assessment/Plan All Active Problems (Last Updated 10/10/17 @ 12:27 by Ubaldo Obregon DO) Unstable angina (Acute) NSTEMI (non-ST elevated myocardial infarction) (Acute) 1. Non-ST elevation myocardial infarction s/p PCI to LCx and OM on 10/11 ASA, Plavix, high-intensity statin 2. 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 4. DVT prophylaxis: Patient is anticoagulated. Code Visit Inpatient E&M: 91195 Subs Hosp L2
--- NOTE | 2017-10-11 12:48 | PN_ITS ---
Patient Problems: Active and Suspected Problems (Last Updated 10/10/17 @ 12:27 by Ubaldo Obregon DO ) Unstable angina (Acute) NSTEMI (non-ST elevated myocardial infarction) (Acute) Subjective: s/p PCI. Currently on bedrest and without complaints. Vitals/I&O's: Vital Signs Temp Pulse Resp BP Pulse Ox 36.5 C L 74 13 130/82 H 95 10/11/17 09:05 10/11/17 10:30 10/11/17 10:30 10/11/17 10:30 10/11/17 10:30 Oxygen Flow Rate (L/min) 2 Oxygen Delivery Method Room Air Weight: 81.556 kg Body Mass Index (BMI) 32.8 Intake and Output for Last 24 Hours 10/09/17 10/10/17 10/11/17 23:59 23:59 23:59 Intake Total 120 / 120 420 / 420 Balance 120 / 120 420 / 420 General: Alert, No apparent distress HEENT: Atraumatic, Normocephalic Oral: Moist Mucosa, No Gingival or Mucosal Lesions/ Ulcerations Neck: No Nodes, Thyroid Normal Size and Texture Lungs: Clear to auscultation, Normal air movement, No rhonchi, No wheeze Cardiovascular: Regular rate, Regular Rhythm, Normal S1, Normal S2 Abdomen: Bowel Sounds Present, Soft, Non Tender, Non-Distended, No Hepato- splenomegaly Extremities: No edema, No Calf Tenderness Laboratory Results 10/10/17 14:30: Troponin I 6.940 H* 10/10/17 14:30: Sodium 138, Potassium 4.1, Chloride 105, Carbon Dioxide 26.0, Anion Gap 7, BUN 20 H, Creatinine 0.98, Estim Creat Clear Calc 51.90, Est GFR ( MDRD) Af Amer 76, Est GFR (MDRD) Non-Af 63, BUN/Creatinine Ratio 20.4 H, Glucose 167 H, Calcium 8.7 10/10/17 17:28: Troponin I 34.700 H* 10/10/17 22:16: POC Glucose 137 H 10/11/17 04:45: WBC 11.3 H, RBC 4.72, Hgb 14.9, Hct 44.2, MCV 93.6, MCH 31.6, MCHC 33.7, RDW 13.1, RDW Differential 44.8 H, Plt Count 190, MPV 11.4 10/11/17 04:45: Sodium 144, Potassium 4.0, Chloride 107, Carbon Dioxide 29.0, Anion Gap 8, BUN 15, Creatinine 0.86, Estim Creat Clear Calc 59.15, Est GFR ( MDRD) Af Amer 89, Est GFR (MDRD) Non-Af 74, BUN/Creatinine Ratio 17.5, Glucose 141 H, Calcium 8.6, Total Bilirubin 0.50, AST 272 H, ALT 61 H, Alkaline Phosphatase 36 L, Total Protein 6.2 L, Albumin 3.1 L, Globulin 3.1, Albumin/ Globulin Ratio 1.0, Triglycerides 131, Cholesterol 159, LDL Cholesterol 83, VLDL Cholesterol 26, HDL Cholesterol 50 10/11/17 04:45: PT 14.0, INR 1.1, APTT 37.2 H 10/11/17 05:10: Urine Color Yellow, Urine Clarity Clear, Urine pH 5.0, Ur Specific [place] 1.020, Urine Protein Negative, Urine Glucose (UA) Normal, Urine Ketones Negative, Urine Occult Blood 10 H, Urine Nitrite Negative, Urine Bilirubin Negative, Urine Urobilinogen Normal, Ur Leukocyte Esterase Negative, Urine RBC 0-5 SEEN, Urine WBC 0 SEEN, Ur Squamous Epith Cells 0-5 SEEN, Urine Bacteria 0 SEEN, Urine Mucus 1+ 10/11/17 05:53: POC Glucose 151 H 10/11/17 08:45: Activated Clotting Time 213 H 10/11/17 09:15: Total Creatine Kinase 1055 H 10/11/17 11:01: Activated Clotting Time 147 H 10/11/17 12:00: Total Creatine Kinase 889 H Current Medications Acetaminophen (Tylenol) 650 mg PO Q6H PRN PRN PRN Reason: Mild Pain (1-3)/Temp > 100.7 F Last Admin: 10/11/17 02:20 Dose: 650 mg Acetaminophen (Tylenol) 650 mg PO Q6H PRN PRN PRN Reason: Mild Pain (0-2/10) Albuterol Sulfate (Ventolin Aerosols) 2.5 mg INHALATION Q4H PRN PRN PRN Reason: Asthma Albuterol Sulfate (Ventolin Aerosols) 2.5 mg INHALATION Q6HWA.RT WICHO Last Admin: 07/02/18 06:48 Dose: 2.5 mg Alendronate Sodium (Fosamax) 70 mg PO Q7D [facility] [place] Last Admin: 10/10/17 14:05 Dose: Not Given Aspirin (Ecotrin) 81 mg PO DAILY@0800 [facility] [place] Last Admin: 10/11/17 06:05 Dose: 81 mg Atorvastatin Calcium (Lipitor) 80 mg PO QHS [facility] [place] Atropine Sulfate () 0.5 mg IV UD PRN PRN Reason: HR <50 bpm Citalopram Hydrobromide (Celexa) 20 mg PO DAILY [facility] [place] Clopidogrel Bisulfate (Plavix) 75 mg PO DAILY [facility] [place] Last Admin: 10/11/17 06:26 Dose: 75 mg Cyclobenzaprine HCl (Flexeril) 10 mg PO TID PRN PRN Reason: SPASMS Dextrose (D50w Syringe) 0 gm IV X1 PRN; Protocol PRN Reason: Hypoglycemia Diazepam (Valium) 5 mg PO BID PRN PRN Reason: ANXIETY Glucagon () 1 mg IM .X1 PRN PRN Reason: Hypoglycemia Hydrochlorothiazide (Hctz) 25 mg PO DAILY [facility] [place] Sodium Chloride () 1,000 mls @ 0 mls/hr IV .Q0M [facility] PRN Reason: KVO Sodium Chloride () 1,000 mls @ 150 mls/hr IV .Q6H40M [facility] [place] Stop: 10/11/17 15:34 Insulin Human Lispro (Humalog Kwikpen (Bkc)) 0 unit SQ TIDAC [facility] [place] PRN Reason: Protocol Last Admin: 10/10/17 16:36 Dose: Not Given Levothyroxine Sodium (Synthroid) 112 mcg PO DAILY@0600 [facility] [place] Last Admin: 10/11/17 06:04 Dose: 112 mcg Magnesium Hydroxide (Milk Of Magnesia) 30 ml PO DAILY PRN PRN Reason: Constipation Metoprolol Tartrate (Lopressor (Beta Alisha)) 25 mg PO BID [facility] [place] Last Admin: 10/11/17 06:05 Dose: 25 mg Montelukast Sodium (Singulair) 10 mg PO DAILY [facility] [place] Morphine Sulfate () 2 - 4 mg IV Q4H PRN PRN PRN Reason: MOD-SEVERE PAIN (4-10/10) Morphine Sulfate () 2 - 4 mg IV Q4H PRN PRN PRN Reason: MOD-SEVERE PAIN (4-10/10) Morphine Sulfate () 2 mg IV Q4H PRN PRN PRN Reason: Mild back pain (0-2/10) Nitroglycerin (Nitrobid) 1 inch TRANSDERM. Q6 [facility] [place] Last Admin: 10/11/17 06:06 Dose: 1 inch Ondansetron HCl (Zofran) 4 mg IV Q8H PRN PRN PRN Reason: NAUSEA Oxycodone HCl (Oxyir) 5 - 10 mg PO Q4H PRN PRN PRN Reason: MOD-SEVERE PAIN (4-10/10) Pantoprazole Sodium (Protonix) 40 mg PO DAILY [facility] [place] Potassium Chloride (K-Dur) 20 meq PO DAILYCM [facility] [place] Prednisone () 5 mg PO DAILY@0800 [facility] [place] Sodium Chloride () 5 - 30 ml IV UD PRN PRN Reason: SALINE FLUSH Sodium Chloride () 500 ml IV BOLUS PRN PRN Reason: VASO-VAGAL PROTOCOL Trazodone HCl (Desyrel) 100 mg PO QHS [facility] [place] Medical Necessity - Tobacco Use Smoking Status: Current every day smoker Tobacco Use: Cigarettes Assessment/Plan All Active Problems (Last Updated 10/10/17 @ 12:27 by Ubaldo Obregon DO) Unstable angina (Acute) NSTEMI (non-ST elevated myocardial infarction) (Acute) 1. Non-ST elevation myocardial infarction * s/p PCI to LCx and OM on 10/11 * ASA, Plavix, high-intensity statin 2. 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 4. DVT prophylaxis: Patient is anticoagulated. Code Visit Inpatient E&M: 91385 Subs Hosp L2
[2017-10-11] MEDS: Pantoprazole Sodium 40 MG Tablet PO (13:39)
[2017-10-11] MEDS: predniSONE 5 MG Tablet PO (13:39)
--- NOTE | 2017-10-11 13:39 | CRPH1.INSTRU ---
General Education CAD and cardiac anatomy and function:: Patient communicates acknowledgment Explanation of diagnoses and procedures:: Patient communicates acknowledgment Sign/Symptoms of [place]:: Patient communicates acknowledgment Antiplatelet therapy: Patient communicates acknowledgment Proper use of NTG-SL: Patient communicates acknowledgment, Not instructed Emergency procedures and activation of EMS: Patient communicates acknowledgment Compliance of all prescribed medications: Patient communicates acknowledgment Smoking Patient Nicotine/Smoking Risk Factors Are:: Cigarettes Recommendations Include:: Smoking cessation strategies/Smoking packet Nicotine/Smoking Response Code:: Patient communicates acknowledgment Dyslipidemia Patient Dyslipidemia Risk Factors Are:: Total Cholesterol Recommendations Include:: Lipid profile provided Dyslipidemia Response Code:: Patient communicates acknowledgment Overweight/Obesity Patient Overweight/Obesity Risk Factors Are:: Obesity - > or = 30 Recommendations Include:: Weight loss of 5-10%, Reduced calorie diet, Exercise 5-7 times/week Overweight/Obesity:: Patient communicates acknowledgment Hypertension Recommendations Include:: Maintain BP <130/85, BP <130/80 if diabetic, DASH dietary guidelines, Decrease/maintain normal body weight, Moderation of ETOH Hypertension:: Patient communicates acknowledgment Heart Disease Patient Heart Disease Risk Factors Are:: Family history of heart disease < 65 years old Recommendations Include:: Educated family members of their risk, Educated family members of importance of prevention of heart disease Heart Disease Response Code:: Patient communicates acknowledgment Diabetes Patient Diabetes Risk Factors Are:: No documented hx of diabetes Recommendations Include:: Maintain fasting blood sugars 70-110 md/dL, Maintain HgbA1c of 6% or less, Monitor blood sugar as prescribed, Diabetic dietary guidelines, Decrease/maintain body weight Diabetes:: Patient communicates acknowledgment Metabolic Syndrome Patient Metabolic Syndrome Risk Factors Are [3 of 5]:: Fasting blood sugar > 100 mg/dL Recommendations Include:: Does not meet criteria, Reinforce compliance to risk factor modifications, Patient is diabetic, Encouraged follow-up with Primary Care Physician Metabolic Syndrome Response Code:: Patient communicates acknowledgment Sedentary Patient Sedentary Risk Factors Are:: Lack of regular exercise Recommendations Include:: Aerobic exercise 5-7 times/week for 20-30 minutes continuously, Benefits of regular exercise, Discussed home walking program, Monitored Outpatient Cardiac Rehab Sedentary Response Code:: Patient communicates acknowledgment Stress Patient Stress Risk Factors Are:: Patient denies stress as a risk factor Recommendations Include:: Identification of stressors, and assessment of coping skills, Stress management techniques Stress Response Code:: Patient communicates acknowledgment
[2017-10-11] MEDS: Citalopram 20 MG Tablet PO (13:40)
[2017-10-11] MEDS: Montelukast 10 MG Tablet PO (13:41)
--- NOTE | 2017-10-11 13:45 | CRPH1.INST_ITS ---
General Education CAD and cardiac anatomy and function:: Patient communicates acknowledgment Explanation of diagnoses and procedures:: Patient communicates acknowledgment Sign/Symptoms of [place]:: Patient communicates acknowledgment Antiplatelet therapy: Patient communicates acknowledgment Proper use of NTG-SL: Patient communicates acknowledgment, Not instructed Emergency procedures and activation of EMS: Patient communicates acknowledgment Compliance of all prescribed medications: Patient communicates acknowledgment Smoking Patient Nicotine/Smoking Risk Factors Are:: Cigarettes Recommendations Include:: Smoking cessation strategies/Smoking packet Nicotine/Smoking Response Code:: Patient communicates acknowledgment Dyslipidemia Patient Dyslipidemia Risk Factors Are:: Total Cholesterol Recommendations Include:: Lipid profile provided Dyslipidemia Response Code:: Patient communicates acknowledgment Overweight/Obesity Patient Overweight/Obesity Risk Factors Are:: Obesity - > or = 30 Recommendations Include:: Weight loss of 5-10%, Reduced calorie diet, Exercise 5 -7 times/week Overweight/Obesity:: Patient communicates acknowledgment Hypertension Recommendations Include:: Maintain BP <130/85, BP <130/80 if diabetic, DASH dietary guidelines, Decrease/maintain normal body weight, Moderation of ETOH Hypertension:: Patient communicates acknowledgment Heart Disease Patient Heart Disease Risk Factors Are:: Family history of heart disease < 65 years old Recommendations Include:: Educated family members of their risk, Educated family members of importance of prevention of heart disease Heart Disease Response Code:: Patient communicates acknowledgment Diabetes Patient Diabetes Risk Factors Are:: No documented hx of diabetes Recommendations Include:: Maintain fasting blood sugars 70-110 md/dL, Maintain HgbA1c of 6% or less, Monitor blood sugar as prescribed, Diabetic dietary guidelines, Decrease/maintain body weight Diabetes:: Patient communicates acknowledgment Metabolic Syndrome Patient Metabolic Syndrome Risk Factors Are [3 of 5]:: Fasting blood sugar > 100 mg/dL Recommendations Include:: Does not meet criteria, Reinforce compliance to risk factor modifications, Patient is diabetic, Encouraged follow-up with Primary Care Physician Metabolic Syndrome Response Code:: Patient communicates acknowledgment Sedentary Patient Sedentary Risk Factors Are:: Lack of regular exercise Recommendations Include:: Aerobic exercise 5-7 times/week for 20-30 minutes continuously, Benefits of regular exercise, Discussed home walking program, Monitored Outpatient Cardiac Rehab Sedentary Response Code:: Patient communicates acknowledgment Stress Patient Stress Risk Factors Are:: Patient denies stress as a risk factor Recommendations Include:: Identification of stressors, and assessment of coping skills, Stress management techniques Stress Response Code:: Patient communicates acknowledgment
--- NOTE | 2017-10-11 13:48 | CRPHASE1_ITS ---
Patient Data/Charges Phase II Referral:: [facility] Risk Factors/Lifestyle Smoking Status: Current every day smoker Laboratory Values: Cardiac Rehab Phase I Labs Triglycerides 131 mg/dL (-199) 10/11/17 04:45 Cholesterol 159 mg/dL (200) 10/11/17 04:45 LDL Cholesterol 83 mg/dL (0-130) 10/11/17 04:45 HDL Cholesterol 50 mg/dL (40-) 10/11/17 04:45 Phase I Education Given On:: [place], Nutrition, Antiplatelet medication, CHF, Smoking cessation, Diabetes - Type I, Diabetes - Type II Issues Affecting Care:: None Knowledge of Condition:: Yes Learning Preferences: Verbal, Written, Audio/Visual, Demonstration Medical/Surgical History [place]:: Yes PTCA:: Yes
[2017-10-11 14:26] LABS: Bedside Glucose 119 mg/dL (70-110)
[2017-10-11 15:54] LABS: CPK Total, Creatine Kinase 738 U/L (26-192)
--- NOTE | 2017-10-11 18:04 | ECHOD_ITS ---
Reason For Study: S/P [place] Procedure This was a 2D Doppler, Color Flow transthoracic echocardiogram. Exam performed portable in patient room. Left Ventricle Normal LV size. The estimated ejection fraction is 45 %. Mild segmental systolic dysfunction (see wall motion). Transmitral diastolic flow velocities suggest mild (stage 1) diastolic dysfunction (reversed pattern). Posterior-Basal: Hypokinetic. Mid-Lateral : Hypokinetic. Lateral-Basal: Hypokinetic. The rest of the wall segments are normal. Right Ventricle Normal RV size. Normal systolic function. Atria Normal left atrium. Normal right atrium. Mitral Valve Normal mitral valve. Tricuspid Valve Normal tricuspid valve. Aortic Valve Normal aortic valve. Pulmonic Valve The pulmonic valve is not well visualized. Great Vessels Normal aortic root. The pulmonary artery is normal size. Normal inferior vena cava. Pericardium/Pleural No pericardial effusion. MMode/2D Measurements & Calculations LVIDd: 3.7 cm IVSd: 1.0 cm Ao root diam: 2.9 cm LVIDs: 2.9 cm LVPWd: 1.2 cm LA dimension: 3.2 cm FS: 22.1 % LAV(MOD-bp): 25.8 ml LA A4 area: 11.9 cm2 RA A4 area: 10.1 cm2 LAV(MOD-bp) Indexed: 14.1 ml/m2 LAV(MOD-sp2): 26.6 ml LAV(MOD-sp4): 25.3 ml Doppler Measurements & Calculations MV E max doug: 57.3 cm/sec Lat Peak E' Doug: 3.8 cm/sec Med Peak E' Doug: 5.2 cm/sec MV A max doug: 78.3 cm/sec E/E' lat: 15.0 E/E' med: 10.9 MV E/A: 0.73 Ao V2 max: 114.4 cm/sec LV V1 max: 93.7 cm/sec PA V2 max: 98.0 cm/sec Ao max P.2 mmHg LV V1 max P.5 mmHg Interpretation Summary Normal LV size. The estimated ejection fraction is 45 %. Mild segmental systolic dysfunction (see wall motion). Transmitral diastolic flow velocities suggest mild (stage 1) diastolic dysfunction (reversed pattern). Ordering Physician: Wilbur Ramirez Referring Physician: Sunny Jean M.D. Performed By: Shasta Cardenas RDCS
[2017-10-11 18:36] LABS: Bedside Glucose 137 mg/dL (70-110)
[2017-10-11] MEDS: traZODone 100 MG Tablet PO (21:15)
[2017-10-11] MEDS: Atorvastatin Calcium 80 MG Tablet PO (21:16)
[2017-10-11 21:31] LABS: Bedside Glucose 127 mg/dL (70-110)
[2017-10-12] VITALS (14 sets, daily range): BP systolic 100–127; BP diastolic 52–88; PULSE 76–99; RESP 15–25; TEMP 37.2; O2SAT 93–97
[2017-10-12 03:54] LABS: Hematocrit 41.3 % (37-47); Hemoglobin 14.1 g/dl (12.0-15.0); Mean Corp Hgb Conc 34.1 g/gl (32-36); Mean Corpuscular Hgb 31.7 pg (27.0-32.0); Mean Corpuscular Volume 92.8 fL (81-99); Platelet Count 173 K/mm3 (150-450); RBC Distribution Width CV 13.2 % (11.6-14.6); RBC Distribution Width SD 44.7 fl (35.1-43.9); Red Blood Count 4.45 M/mm3 (4.2-5.4); Scan Indicated on CBC? Y/N NO; White Blood Count 11.5 K/mm3 (4.4-11.0)
[2017-10-12 04:28] LABS: Anion Gap 7 (5-15); BUN 15 mg/dL (7-18); BUN/Creat Ratio 18.2 RATIO (10-20); Calcium,Total 8.2 mg/dL (8.5-10.1); Chloride 108 mmol/L (98-107); Creatinine, Serum 0.82 mg/dL (0.55-1.02); EST Glomerular Filtration Rate 77 mL/min (>60); Est Glom Filt Rate - Afr Amer 93 mL/min (>60); Estimated Creatinine Clearance 62.03 ml/min; Glucose 125 mg/dL (74-106); Potassium 4.1 mmol/L (3.5-5.1); Sodium Level 143 mmol/L (136-145)
[2017-10-12] MEDS: Nitroglycerin Oint 1 INCH PACKET TRANSDERM. (05:04)
[2017-10-12] MEDS: Levothyroxine 112 MCG Tablet PO (05:04)
[2017-10-12 06:56] LABS: Bedside Glucose 139 mg/dL (70-110)
[2017-10-12] MEDS: Albuterol 2.5 MG/3 ML VIAL.NEB. INHALATION (07:07)
--- NOTE | 2017-10-12 08:02 | PCM.PN.CARD ---
Subjectve: The patient was seen and evaluated. Has no complaints overnight groin is mildly ecchymotic Objective: Vital Signs Temp Pulse Resp BP Pulse Ox 98.9 F 82 18 126/88 H 96 10/12/17 00:00 10/12/17 07:07 10/12/17 07:07 10/12/17 06:00 10/12/17 07:07 Oxygen Flow Rate (L/min) 2 Oxygen Delivery Method Room Air Weight: 179 lb 7.3 oz Body Mass Index (BMI) 32.8 Intake and Output for Last 24 Hours 10/10/17 10/11/17 10/12/17 23:59 23:59 23:59 Intake Total 120 / 120 420 / 420 1681 / 1681 Output Total 250 / 250 425 / 425 Balance 120 / 120 170 / 170 1256 / 1256 General: Awake, Alert, Oriented x 3 HEENT: PERRL, EOMI, Sclera Non Icteric Neck: Supple, Good ROM, No Lymph Node Enlargement Lungs: Clear to auscultation Cardiovascular: Regular Rhythm, Normal S1, Normal S2, No Murmurs, No Rubs, No Gallops Vascular: No Carotid Bruits, Normal Femoral Pulses, Normal Radial Pulses, Normal Dorsalis Pedal Pulse, Normal Posterior Tibial Pulses Abdomen: Bowel Sounds Present, Soft, Non Tender, No HSM, No Organomegaly Extremities: No Cyanosis, No Clubbing, No edema Neurological: No Focal Motor or Sensory Deficit 10/12/17 03:40: WBC 11.5 H, RBC 4.45, Hgb 14.1, Hct 41.3, MCV 92.8, MCH 31.7, MCHC 34.1, RDW 13.2, RDW Differential 44.7 H, Plt Count 173, MPV 11.0 10/12/17 03:40: Sodium 143, Potassium 4.1, Chloride 108 H, Carbon Dioxide 28.0, Anion Gap 7, BUN 15, Creatinine 0.82, Est GFR (MDRD) Af Amer 93, Est GFR (MDRD) Non-Af 77, BUN/Creatinine Ratio 18.2, Glucose 125 H, Calcium 8.2 L Rhythm: EKG: Normal sinus rhythm with no acute changes ECHO: Estimated ejection fraction of 40-45% with posterior wall hypokinesis and mid and basal lateral wall hypokinesis Medical Necessity - Tobacco Use Smoking Status: Current every day smoker Tobacco Use: Cigarettes Assessment/Plan 1. Non-ST elevation myocardial infarction. She presents with new onset chest discomfort with radiation to the right arm. This discomfort together with the EKG changes is suggestive of new onset angina and cardiac troponin enzymes have ruled her in for a non-ST elevation myocardial infarction. Patient underwent cardiac catheterization which demonstrated the following: Normal left main coronary artery. Left anterior descending artery with no significant disease. Left circumflex artery with large first obtuse marginal branch with proximal 80% stenosis and mid 90% stenosis. Dominant left circumflex artery with distal 75% stenosis. Nondominant right coronary artery. Reduced left ventricular systolic function with estimated ejection fraction of 40% and anterolateral hypokinesis. She successfully underwent angioplasty and stenting of the proximal left circumflex artery with a 2.5?24 Synergy stent and the distal circumflex artery with a 2.25?12 Synergy stent. She has done well overnight with no EKG changes and no bleeding, hemoglobin has remained stable with no fall and creatinine has remained stable with no rise. My recommendations at this time would be as follows. Aspirin 81 mg Clopidogrel 75 mg daily High intensity statin Routine smoking cessation Lopressor 25 mg twice a day Cardiac rehabilitation The patient can be discharged later today for outpatient follow-up. Follow-up will be arranged through my office. Thank you for allowing me to participate in the care of your patient. Please don't hesitate to call if any issues arise
--- NOTE | 2017-10-12 08:05 | PN.CARD_ITS ---
Subjectve: The patient was seen and evaluated. Has no complaints overnight groin is mildly ecchymotic Objective: Vital Signs Temp Pulse Resp BP Pulse Ox 98.9 F 82 18 126/88 H 96 10/12/17 00:00 10/12/17 07:07 10/12/17 07:07 10/12/17 06:00 10/12/17 07:07 Oxygen Flow Rate (L/min) 2 Oxygen Delivery Method Room Air Weight: 179 lb 7.3 oz Body Mass Index (BMI) 32.8 Intake and Output for Last 24 Hours 10/10/17 10/11/17 10/12/17 23:59 23:59 23:59 Intake Total 120 / 120 420 / 420 1681 / 1681 Output Total 250 / 250 425 / 425 Balance 120 / 120 170 / 170 1256 / 1256 General: Awake, Alert, Oriented x 3 HEENT: PERRL, EOMI, Sclera Non Icteric Neck: Supple, Good ROM, No Lymph Node Enlargement Lungs: Clear to auscultation Cardiovascular: Regular Rhythm, Normal S1, Normal S2, No Murmurs, No Rubs, No Gallops Vascular: No Carotid Bruits, Normal Femoral Pulses, Normal Radial Pulses, Normal Dorsalis Pedal Pulse, Normal Posterior Tibial Pulses Abdomen: Bowel Sounds Present, Soft, Non Tender, No HSM, No Organomegaly Extremities: No Cyanosis, No Clubbing, No edema Neurological: No Focal Motor or Sensory Deficit 10/12/17 03:40: WBC 11.5 H, RBC 4.45, Hgb 14.1, Hct 41.3, MCV 92.8, MCH 31.7, MCHC 34.1, RDW 13.2, RDW Differential 44.7 H, Plt Count 173, MPV 11.0 10/12/17 03:40: Sodium 143, Potassium 4.1, Chloride 108 H, Carbon Dioxide 28.0, Anion Gap 7, BUN 15, Creatinine 0.82, Est GFR (MDRD) Af Amer 93, Est GFR (MDRD) Non-Af 77, BUN/Creatinine Ratio 18.2, Glucose 125 H, Calcium 8.2 L Rhythm: EKG: Normal sinus rhythm with no acute changes ECHO: Estimated ejection fraction of 40-45% with posterior wall hypokinesis and mid and basal lateral wall hypokinesis Medical Necessity - Tobacco Use Smoking Status: Current every day smoker Tobacco Use: Cigarettes Assessment/Plan 1. Non-ST elevation myocardial infarction. She presents with new onset chest discomfort with radiation to the right arm. This discomfort together with the EKG changes is suggestive of new onset angina and cardiac troponin enzymes have ruled her in for a non-ST elevation myocardial infarction. Patient underwent cardiac catheterization which demonstrated the following: Normal left main coronary artery. Left anterior descending artery with no significant disease. Left circumflex artery with large first obtuse marginal branch with proximal 80 % stenosis and mid 90% stenosis. Dominant left circumflex artery with distal 75% stenosis. Nondominant right coronary artery. Reduced left ventricular systolic function with estimated ejection fraction of 40% and anterolateral hypokinesis. She successfully underwent angioplasty and stenting of the proximal left circumflex artery with a 2.5?24 Synergy stent and the distal circumflex artery with a 2.25?12 Synergy stent. She has done well overnight with no EKG changes and no bleeding, hemoglobin has remained stable with no fall and creatinine has remained stable with no rise. My recommendations at this time would be as follows. * Aspirin 81 mg * Clopidogrel 75 mg daily * High intensity statin * Routine smoking cessation * Lopressor 25 mg twice a day * Cardiac rehabilitation * * The patient can be discharged later today for outpatient follow-up. Follow- up will be arranged through my office. * Thank you for allowing me to participate in the care of your patient. Please don't hesitate to call if any issues arise
[2017-10-12] MEDS: Clopidogrel Bisulfate 75 MG Tablet PO (08:27)
[2017-10-12] MEDS: Citalopram 20 MG Tablet PO (08:27)
[2017-10-12] MEDS: predniSONE 5 MG Tablet PO (08:27)
[2017-10-12] MEDS: Pantoprazole Sodium 40 MG Tablet PO (08:27)
[2017-10-12] MEDS: Aspirin E.C. 81 MG Tablet PO (08:27)
[2017-10-12] MEDS: Montelukast 10 MG Tablet PO (08:27)
[2017-10-12] MEDS: hydroCHLOROthiazide 25 MG Tablet PO (08:28)
[2017-10-12] MEDS: Metoprolol Tartrate 25 MG Tablet PO (08:28)
--- NOTE | 2017-10-12 08:46 | PCM.PN.HOSP ---
Patient Problems: Active and Suspected Problems (Last Updated 10/10/17 @ 12:27 by Ubaldo Obregon DO) Unstable angina (Acute) NSTEMI (non-ST elevated myocardial infarction) (Acute) Subjective: Feels good. No chest pain. No SOB. Ready to go home. Vitals/I&O's: Vital Signs Temp Pulse Resp BP Pulse Ox 37.2 C 99 18 112/76 96 10/12/17 00:00 10/12/17 08:40 10/12/17 07:07 10/12/17 08:28 10/12/17 07:07 Oxygen Flow Rate (L/min) 2 Oxygen Delivery Method Room Air Weight: 81.4 kg Body Mass Index (BMI) 32.8 Intake and Output for Last 24 Hours 10/10/17 10/11/17 10/12/17 23:59 23:59 23:59 Intake Total 120 / 120 420 / 420 1681 / 1681 Output Total 250 / 250 425 / 425 Balance 120 / 120 170 / 170 1256 / 1256 General: Alert, No apparent distress HEENT: Atraumatic, Normocephalic Oral: Moist Mucosa, No Gingival or Mucosal Lesions/ Ulcerations Neck: No Nodes, Thyroid Normal Size and Texture Lungs: Clear to auscultation, Normal air movement, No rhonchi, No wheeze Cardiovascular: Regular rate, Regular Rhythm, Normal S1, Normal S2 Abdomen: Bowel Sounds Present, Soft, Non Tender, Non-Distended, No Hepato-splenomegaly Extremities: No edema, No Calf Tenderness Skin: No rashes, No breakdown Psych/Mental Status: Normal Affect, Appropriate Laboratory Results 10/11/17 08:45: Activated Clotting Time 213 H 10/11/17 09:15: Total Creatine Kinase 1055 H 10/11/17 11:01: Activated Clotting Time 147 H 10/11/17 12:00: Total Creatine Kinase 889 H 10/11/17 14:19: POC Glucose 119 H 10/11/17 15:25: Total Creatine Kinase 738 H 10/11/17 18:26: POC Glucose 137 H 10/11/17 21:22: POC Glucose 127 H 10/12/17 03:40: WBC 11.5 H, RBC 4.45, Hgb 14.1, Hct 41.3, MCV 92.8, MCH 31.7, MCHC 34.1, RDW 13.2, RDW Differential 44.7 H, Plt Count 173, MPV 11.0 10/12/17 03:40: Sodium 143, Potassium 4.1, Chloride 108 H, Carbon Dioxide 28.0, Anion Gap 7, BUN 15, Creatinine 0.82, Estim Creat Clear Calc 62.03, Est GFR (MDRD) Af Amer 93, Est GFR (MDRD) Non-Af 77, BUN/Creatinine Ratio 18.2, Glucose 125 H, Calcium 8.2 L 10/12/17 06:50: POC Glucose 139 H Current Medications Acetaminophen (Tylenol) 650 mg PO Q6H PRN PRN PRN Reason: Mild Pain (1-3)/Temp > 100.7 F Last Admin: 10/11/17 02:20 Dose: 650 mg Acetaminophen (Tylenol) 650 mg PO Q6H PRN PRN PRN Reason: Mild Pain (0-2/10) Albuterol Sulfate (Ventolin Aerosols) 2.5 mg INHALATION Q4H PRN PRN PRN Reason: Asthma Last Admin: 10/11/17 17:26 Dose: 2.5 mg Albuterol Sulfate (Ventolin Aerosols) 2.5 mg INHALATION Q6HWA.RT [facility] Last Admin: 10/12/17 07:07 Dose: 2.5 mg Alendronate Sodium (Fosamax) 70 mg PO Q7D [facility] Last Admin: 10/10/17 14:05 Dose: Not Given Aspirin (Ecotrin) 81 mg PO DAILY@0800 [facility] Last Admin: 10/12/17 08:27 Dose: 81 mg Atorvastatin Calcium (Lipitor) 80 mg PO QHS [facility] Last Admin: 10/11/17 21:16 Dose: 80 mg Atropine Sulfate () 0.5 mg IV UD PRN PRN Reason: HR <50 bpm Citalopram Hydrobromide (Celexa) 20 mg PO DAILY [facility] Last Admin: 10/12/17 08:27 Dose: 20 mg Clopidogrel Bisulfate (Plavix) 75 mg PO DAILY [facility] Last Admin: 10/12/17 08:27 Dose: 75 mg Cyclobenzaprine HCl (Flexeril) 10 mg PO TID PRN PRN Reason: SPASMS Dextrose (D50w Syringe) 0 gm IV X1 PRN; Protocol PRN Reason: Hypoglycemia Diazepam (Valium) 5 mg PO BID PRN PRN Reason: ANXIETY Glucagon () 1 mg IM .X1 PRN PRN Reason: Hypoglycemia Hydrochlorothiazide (Hctz) 25 mg PO DAILY [facility] Last Admin: 10/12/17 08:28 Dose: 25 mg Sodium Chloride () 1,000 mls @ 0 mls/hr IV .Q0M [facility] PRN Reason: KVO Insulin Human Lispro (Humalog Kwikpen (Bkc)) 0 unit SQ TIDAC [facility] PRN Reason: Protocol Last Admin: 10/12/17 08:14 Dose: Not Given Levothyroxine Sodium (Synthroid) 112 mcg PO DAILY@0600 [facility] Last Admin: 10/12/17 05:04 Dose: 112 mcg Magnesium Hydroxide (Milk Of Magnesia) 30 ml PO DAILY PRN PRN Reason: Constipation Metoprolol Tartrate (Lopressor (Beta Alisha)) 25 mg PO BID [facility] Last Admin: 10/12/17 08:28 Dose: 25 mg Montelukast Sodium (Singulair) 10 mg PO DAILY [facility] Last Admin: 10/12/17 08:27 Dose: 10 mg Morphine Sulfate () 2 - 4 mg IV Q4H PRN PRN PRN Reason: MOD-SEVERE PAIN (4-10/10) Morphine Sulfate () 2 - 4 mg IV Q4H PRN PRN PRN Reason: MOD-SEVERE PAIN (4-10/10) Morphine Sulfate () 2 mg IV Q4H PRN PRN PRN Reason: Mild back pain (0-2/10) Nitroglycerin (Nitrobid) 1 inch TRANSDERM. Q6 [facility] Last Admin: 10/12/17 05:04 Dose: 1 inch Ondansetron HCl (Zofran) 4 mg IV Q8H PRN PRN PRN Reason: NAUSEA Oxycodone HCl (Oxyir) 5 - 10 mg PO Q4H PRN PRN PRN Reason: MOD-SEVERE PAIN (4-10/10) Pantoprazole Sodium (Protonix) 40 mg PO DAILY [facility] Last Admin: 10/12/17 08:27 Dose: 40 mg Prednisone () 5 mg PO DAILY@0800 [facility] Last Admin: 10/12/17 08:27 Dose: 5 mg Sodium Chloride () 5 - 30 ml IV UD PRN PRN Reason: SALINE FLUSH Sodium Chloride () 500 ml IV BOLUS PRN PRN Reason: VASO-VAGAL PROTOCOL Trazodone HCl (Desyrel) 100 mg PO QHS [facility] Last Admin: 10/11/17 21:15 Dose: 100 mg Medical Necessity - Tobacco Use Smoking Status: Current every day smoker Tobacco Use: Cigarettes Assessment/Plan All Active Problems (Last Updated 10/10/17 @ 12:27 by Ubaldo Obregon DO) Unstable angina (Acute) NSTEMI (non-ST elevated myocardial infarction) (Acute) 1. Non-ST elevation myocardial infarction s/p PCI to LCx and OM on 10/11 ASA, Plavix, high-intensity statin Advised pt on the importance of compliance w DAPT and risk of in-stent thrombosis (and subsequent [place]) if not followed. Expressed importance on tobacco cessation, pt states she will comply. 2. Diabetes mellitus type 2 Patient on metformin and and I will hold for now in light of potential contrast she may received with a left heart catheterization Fair control Resume metformin on 10/16 due to IV contrast w C. 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 4. DVT prophylaxis: Patient is anticoagulated.
--- NOTE | 2017-10-12 08:51 | PN_ITS ---
Patient Problems: Active and Suspected Problems (Last Updated 10/10/17 @ 12:27 by Ubaldo Obregon DO ) Unstable angina (Acute) NSTEMI (non-ST elevated myocardial infarction) (Acute) Subjective: Feels good. No chest pain. No SOB. Ready to go home. Vitals/I&O's: Vital Signs Temp Pulse Resp BP Pulse Ox 37.2 C 99 18 112/76 96 10/12/17 00:00 10/12/17 08:40 10/12/17 07:07 10/12/17 08:28 10/12/17 07:07 Oxygen Flow Rate (L/min) 2 Oxygen Delivery Method Room Air Weight: 81.4 kg Body Mass Index (BMI) 32.8 Intake and Output for Last 24 Hours 10/10/17 10/11/17 10/12/17 23:59 23:59 23:59 Intake Total 120 / 120 420 / 420 1681 / 1681 Output Total 250 / 250 425 / 425 Balance 120 / 120 170 / 170 1256 / 1256 General: Alert, No apparent distress HEENT: Atraumatic, Normocephalic Oral: Moist Mucosa, No Gingival or Mucosal Lesions/ Ulcerations Neck: No Nodes, Thyroid Normal Size and Texture Lungs: Clear to auscultation, Normal air movement, No rhonchi, No wheeze Cardiovascular: Regular rate, Regular Rhythm, Normal S1, Normal S2 Abdomen: Bowel Sounds Present, Soft, Non Tender, Non-Distended, No Hepato- splenomegaly Extremities: No edema, No Calf Tenderness Skin: No rashes, No breakdown Psych/Mental Status: Normal Affect, Appropriate Laboratory Results 10/11/17 08:45: Activated Clotting Time 213 H 10/11/17 09:15: Total Creatine Kinase 1055 H 10/11/17 11:01: Activated Clotting Time 147 H 10/11/17 12:00: Total Creatine Kinase 889 H 10/11/17 14:19: POC Glucose 119 H 10/11/17 15:25: Total Creatine Kinase 738 H 10/11/17 18:26: POC Glucose 137 H 10/11/17 21:22: POC Glucose 127 H 10/12/17 03:40: WBC 11.5 H, RBC 4.45, Hgb 14.1, Hct 41.3, MCV 92.8, MCH 31.7, MCHC 34.1, RDW 13.2, RDW Differential 44.7 H, Plt Count 173, MPV 11.0 10/12/17 03:40: Sodium 143, Potassium 4.1, Chloride 108 H, Carbon Dioxide 28.0, Anion Gap 7, BUN 15, Creatinine 0.82, Estim Creat Clear Calc 62.03, Est GFR ( MDRD) Af Amer 93, Est GFR (MDRD) Non-Af 77, BUN/Creatinine Ratio 18.2, Glucose 125 H, Calcium 8.2 L 10/12/17 06:50: POC Glucose 139 H Current Medications Acetaminophen (Tylenol) 650 mg PO Q6H PRN PRN PRN Reason: Mild Pain (1-3)/Temp > 100.7 F Last Admin: 10/11/17 02:20 Dose: 650 mg Acetaminophen (Tylenol) 650 mg PO Q6H PRN PRN PRN Reason: Mild Pain (0-2/10) Albuterol Sulfate (Ventolin Aerosols) 2.5 mg INHALATION Q4H PRN PRN PRN Reason: Asthma Last Admin: 10/11/17 17:26 Dose: 2.5 mg Albuterol Sulfate (Ventolin Aerosols) 2.5 mg INHALATION Q6HWA.RT [facility] Last Admin: 10/12/17 07:07 Dose: 2.5 mg Alendronate Sodium (Fosamax) 70 mg PO Q7D [facility] Last Admin: 10/10/17 14:05 Dose: Not Given Aspirin (Ecotrin) 81 mg PO DAILY@0800 [facility] Last Admin: 10/12/17 08:27 Dose: 81 mg Atorvastatin Calcium (Lipitor) 80 mg PO QHS [facility] Last Admin: 10/11/17 21:16 Dose: 80 mg Atropine Sulfate () 0.5 mg IV UD PRN PRN Reason: HR <50 bpm Citalopram Hydrobromide (Celexa) 20 mg PO DAILY [facility] Last Admin: 10/12/17 08:27 Dose: 20 mg Clopidogrel Bisulfate (Plavix) 75 mg PO DAILY [facility] Last Admin: 10/12/17 08:27 Dose: 75 mg Cyclobenzaprine HCl (Flexeril) 10 mg PO TID PRN PRN Reason: SPASMS Dextrose (D50w Syringe) 0 gm IV X1 PRN; Protocol PRN Reason: Hypoglycemia Diazepam (Valium) 5 mg PO BID PRN PRN Reason: ANXIETY Glucagon () 1 mg IM .X1 PRN PRN Reason: Hypoglycemia Hydrochlorothiazide (Hctz) 25 mg PO DAILY [facility] Last Admin: 10/12/17 08:28 Dose: 25 mg Sodium Chloride () 1,000 mls @ 0 mls/hr IV .Q0M [facility] PRN Reason: KVO Insulin Human Lispro (Humalog Kwikpen (Bkc)) 0 unit SQ TIDAC [facility] PRN Reason: Protocol Last Admin: 10/12/17 08:14 Dose: Not Given Levothyroxine Sodium (Synthroid) 112 mcg PO DAILY@0600 [facility] Last Admin: 10/12/17 05:04 Dose: 112 mcg Magnesium Hydroxide (Milk Of Magnesia) 30 ml PO DAILY PRN PRN Reason: Constipation Metoprolol Tartrate (Lopressor (Beta Alisha)) 25 mg PO BID [facility] Last Admin: 10/12/17 08:28 Dose: 25 mg Montelukast Sodium (Singulair) 10 mg PO DAILY [facility] Last Admin: 10/12/17 08:27 Dose: 10 mg Morphine Sulfate () 2 - 4 mg IV Q4H PRN PRN PRN Reason: MOD-SEVERE PAIN (4-10/10) Morphine Sulfate () 2 - 4 mg IV Q4H PRN PRN PRN Reason: MOD-SEVERE PAIN (4-10/10) Morphine Sulfate () 2 mg IV Q4H PRN PRN PRN Reason: Mild back pain (0-2/10) Nitroglycerin (Nitrobid) 1 inch TRANSDERM. Q6 [facility] Last Admin: 10/12/17 05:04 Dose: 1 inch Ondansetron HCl (Zofran) 4 mg IV Q8H PRN PRN PRN Reason: NAUSEA Oxycodone HCl (Oxyir) 5 - 10 mg PO Q4H PRN PRN PRN Reason: MOD-SEVERE PAIN (4-10/10) Pantoprazole Sodium (Protonix) 40 mg PO DAILY [facility] Last Admin: 10/12/17 08:27 Dose: 40 mg Prednisone () 5 mg PO DAILY@0800 [facility] Last Admin: 10/12/17 08:27 Dose: 5 mg Sodium Chloride () 5 - 30 ml IV UD PRN PRN Reason: SALINE FLUSH Sodium Chloride () 500 ml IV BOLUS PRN PRN Reason: VASO-VAGAL PROTOCOL Trazodone HCl (Desyrel) 100 mg PO QHS [facility] Last Admin: 10/11/17 21:15 Dose: 100 mg Medical Necessity - Tobacco Use Smoking Status: Current every day smoker Tobacco Use: Cigarettes Assessment/Plan All Active Problems (Last Updated 10/10/17 @ 12:27 by Ubaldo Obregon DO) Unstable angina (Acute) NSTEMI (non-ST elevated myocardial infarction) (Acute) 1. Non-ST elevation myocardial infarction * s/p PCI to LCx and OM on 10/11 * ASA, Plavix, high-intensity statin * Advised pt on the importance of compliance w DAPT and risk of in-stent thrombosis (and subsequent [place]) if not followed. * Expressed importance on tobacco cessation, pt states she will comply. 2. Diabetes mellitus type 2 * Patient on metformin and and I will hold for now in light of potential contrast she may received with a left heart catheterization * Fair control * Resume metformin on 10/16 due to IV contrast w [facility]. 3. Hyper eosinophilic syndrome * Patient is on prednisone daily * No evidence of adrenal crisis * PCP managing prednisone * Would recommend follow up with [facility] or Hematology as outpt. 4. DVT prophylaxis: Patient is anticoagulated.
--- NOTE | 2017-10-12 09:00 | DCINST_ITS ---
- Discharge Diagnoses Current Active Problems: Current Active and Chronic Problems (Last Updated 10/10/17 @ 12:27 by Ubaldo Obregon DO) Unstable angina (Acute) NSTEMI (non-ST elevated myocardial infarction) (Acute) You will use the following diet at home:: Calorie/Carbohydrate Controlled ( specify 1200, 1400, etc) - 1800, Cardiac Your food should be the consistency of: Regular Your liquids should be the consistency of: Regular/Thin Discharge Activity: Return to Normal Activity Call your doctor if you observe: Shortness of breath, Chest pain Allergies/Adverse Reactions: Allergies Cephalosporins Adverse Reaction (Verified 10/10/17 11:53) Rash Penicillins Adverse Reaction (Verified 10/10/17 11:53) Rash Medications to take at Discharge Alendronate Sodium 70 mg PO Q7D 10/10/17 Citalopram [Celexa] 20 mg PO DAILY 10/10/17 Cyclobenzaprine 10 mg PO TID PRN 10/10/17 Diazepam [Valium] 5 mg PO BID PRN 10/10/17 Hydrochlorothiazide [Hctz] 25 mg PO DAILY 10/10/17 Levothyroxine Sodium 112 mcg PO DAILY 10/10/17 Montelukast Sodium [Singulair] 10 mg PO DAILY 10/10/17 Omeprazole 40 mg PO DAILY 10/10/17 Potassium Chloride [Klor-Con M20] 20 mg PO DAILY 10/10/17 traZODone [Desyrel] 100 mg PO DAILY 10/10/17 Aspirin E.C. [Ecotrin] 81 mg PO DAILY@0800 tablet 10/12/17 Atorvastatin Calcium [Lipitor] 80 mg PO QHS #30 tab 10/12/17 Clopidogrel Bisulfate [Plavix] 75 mg PO DAILY #30 tab 10/12/17 Metformin(XR) [Glucophage Xr] 500 mg PO DAILY #0 10/12/17 Metoprolol Tartrate [Lopressor (beta aung)] 25 mg PO BID #60 tab 10/12/17 The following prescriptions were given: Atorvastatin Calcium [Lipitor] 80 mg PO QHS #30 tab Clopidogrel Bisulfate [Plavix] 75 mg PO DAILY #30 tab Metoprolol Tartrate [Lopressor (beta aung)] 25 mg PO BID #60 tab Orders to be completed after discharge: Phase II, Outpatient Cardiac Rehab Location: None Selected Primary Care Physician: Maycol Jean MD [Primary Care Provider] - Within 2 Weeks Test Results: Please Follow Up With: Wilbur Ramirez MD When: 2 weeks Proposed Discharge Date: 10/12/17
--- NOTE | 2017-10-12 09:00 | EKG12_ITS ---
Test Reason : AM EKG Blood Pressure : / mmHG Vent. Rate : 078 BPM Atrial Rate : 078 BPM P-R Int : 140 ms QRS Dur : 078 ms QT Int : 406 ms P-R-T Axes : 066 079 099 degrees QTc Int : 462 ms Normal sinus rhythm Nonspecific ST and T wave abnormality Prolonged QT Abnormal ECG When compared with ECG of 11-OCT-2017 09:13, MANUAL COMPARISON REQUIRED, DATA IS UNCONFIRMED Confirmed by JOSE MANUEL MUÑOZ, SAGE ([id number]), editor department ANN MABRY ([id number]) on 10/19/2017 1:11:41 PM Referred By: SHERRIE Confirmed By:SAGE RICHARD MD
--- NOTE | 2017-10-12 09:00 | PCM.DC.SUM ---
Discharge Date and Diagnosis - Problem List Patient Problems: Active and Suspected Problems (Last Updated 10/10/17 @ 12:27 by Ubaldo Obregon DO) Unstable angina (Acute) NSTEMI (non-ST elevated myocardial infarction) (Acute) Date of Admission: 10/10/17 Date of Discharge: 10/12/17 - Primary Discharge Diagnosis Active and Suspected Problems (Last Updated 10/10/17 @ 12:27 by Ubaldo Obregon DO) Unstable angina (Acute) NSTEMI (non-ST elevated myocardial infarction) (Acute) Hospital Course and Treatment Imaging Results: Clinical Impression(s) from Imaging Studies Chest X-Ray 10/11/17 05:55 IMPRESSION: Hyperinflation, compatible with post obstruction suspected. No pulmonary edema, congestive heart failure or confluent pneumonia. Electronically Signed: Anjelica Sesay MD at 6:14 EDT , Service support , Wilbur Rivera Operations: None Procedures: 2-D Echocardiogram, Cardiac catheterization Summary of Care Provided: The patient is a 52 year old F presents with chest pain. Patient presented to outside hospital where they did a backside EKG that showed less than a millimeter of, V8 and benign. On the standard EKG, patient was noted to have ST depressions in the lateral leads. Troponins went as high as 34. Patient was started on medical therapy and patient underwent a left heart catheterization on the second. Patient had angioplasty and stenting of the proximal left circumflex artery with a 2.5 x 24 Synergy stent and distal circumflex artery with a 2.25 x 12 Synergy stent. Patient will continue with aspirin, Plavix, high intensity statin and Lopressor. Patient advised to stop smoking which she states that she will comply with. Patient will follow up with cardiology and further cardiac rehab will be arranged through them. 1. Non-ST elevation myocardial infarction s/p PCI to LCx and OM on 7/2 ASA, Plavix, high-intensity statin Advised pt on the importance of compliance w DAPT and risk of in-stent thrombosis (and subsequent [place]) if not followed. Expressed importance on tobacco cessation, pt states she will comply. 2. Diabetes mellitus type 2 Patient on metformin and and I will hold for now in light of potential contrast she may received with a left heart catheterization Fair control Resume metformin on 10/16 due to IV contrast w [facility]. 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 No evidence of adrenal crisis PCP managing prednisone Would recommend follow up with [facility] or Hematology as outpt.[] Discharge Diet: Low fat/ Low Cholesterol, 1800 Calorie Control Diet Discharge Activity: Return to Normal Activity Call your doctor if you observe: Shortness of breath, Chest pain Home Medications: Medications to take at Discharge Alendronate Sodium 70 mg PO Q7D 10/10/17 Citalopram [Celexa] 20 mg PO DAILY 10/10/17 Cyclobenzaprine 10 mg PO TID PRN 10/10/17 Diazepam [Valium] 5 mg PO BID PRN 10/10/17 Hydrochlorothiazide [Hctz] 25 mg PO DAILY 10/10/17 Levothyroxine Sodium 112 mcg PO DAILY 10/10/17 Montelukast Sodium [Singulair] 10 mg PO DAILY 10/10/17 Omeprazole 40 mg PO DAILY 10/10/17 Potassium Chloride [Klor-Con M20] 20 mg PO DAILY 10/10/17 traZODone [Desyrel] 100 mg PO DAILY 10/10/17 Aspirin E.C. [Ecotrin] 81 mg PO DAILY@0800 tablet 10/12/17 Atorvastatin Calcium [Lipitor] 80 mg PO QHS #30 tab 10/12/17 Clopidogrel Bisulfate [Plavix] 75 mg PO DAILY #30 tab 10/12/17 Metformin(XR) [Glucophage Xr] 500 mg PO DAILY #0 10/12/17 Metoprolol Tartrate [Lopressor (beta alisha)] 25 mg PO BID #60 tab 10/12/17 Following Prescrptions Were Given to Patient: Atorvastatin Calcium [Lipitor] 80 mg PO QHS #30 tab Clopidogrel Bisulfate [Plavix] 75 mg PO DAILY #30 tab Metoprolol Tartrate [Lopressor (beta alisha)] 25 mg PO BID #60 tab Other Amb Orders: Phase II, Outpatient Cardiac Rehab Location: None Selected Primary Care Physician: Maycol Jean MD [Primary Care Provider] - Within 2 Weeks Please Follow Up With: Wilbur Ramirez MD When: 2 weeks Disposition: Home Minutes spent on discharge:: 32 Patient Condition:: Good Medical Necessity - Tobacco Use Smoking Status: Current every day smoker Tobacco Use: Cigarettes Meaningful Use Info Meaningful Use Diagnoses (Choose all that apply): AMI - AMI Aspirin given w/in 24hrs of arrival?: Yes ASA at discharge?: Yes Statins at discharge?: Yes Catarino/ARB at discharge?: No Reason Catarino/ARB not ordered:: Hypotension Beta Alisha at discharge?: Yes Done w/ Acute GA measure.: Yes Code Visit Inpatient E&M: 41047 Disch Hosp
--- NOTE | 2017-10-12 09:04 | DS.PCM_ITS ---
Discharge Date and Diagnosis - Problem List Patient Problems: Active and Suspected Problems (Last Updated 10/10/17 @ 12:27 by Ubaldo Obregon DO ) Unstable angina (Acute) NSTEMI (non-ST elevated myocardial infarction) (Acute) Date of Admission: 10/10/17 Date of Discharge: 10/12/17 - Primary Discharge Diagnosis Active and Suspected Problems (Last Updated 10/10/17 @ 12:27 by Ubaldo Obregon DO ) Unstable angina (Acute) NSTEMI (non-ST elevated myocardial infarction) (Acute) Hospital Course and Treatment Imaging Results: Clinical Impression(s) from Imaging Studies Chest X-Ray 10/11/17 05:55 IMPRESSION: Hyperinflation, compatible with post obstruction suspected. No pulmonary edema, congestive heart failure or confluent pneumonia. Electronically Signed: Anjelica Sesay MD at 6:14 EDT , Service support , Wilbur Rivera Operations: None Procedures: 2-D Echocardiogram, Cardiac catheterization Summary of Care Provided: The patient is a 52 year old F presents with chest pain. Patient presented to outside hospital where they did a backside EKG that showed less than a millimeter of, V8 and benign. On the standard EKG, patient was noted to have ST depressions in the lateral leads. Troponins went as high as 34. Patient was started on medical therapy and patient underwent a left heart catheterization on the second. Patient had angioplasty and stenting of the proximal left circumflex artery with a 2.5 x 24 Synergy stent and distal circumflex artery with a 2.25 x 12 Synergy stent. Patient will continue with aspirin, Plavix, high intensity statin and Lopressor. Patient advised to stop smoking which she states that she will comply with. Patient will follow up with cardiology and further cardiac rehab will be arranged through them. 1. Non-ST elevation myocardial infarction * s/p PCI to LCx and OM on 10/11 * ASA, Plavix, high-intensity statin * Advised pt on the importance of compliance w DAPT and risk of in-stent thrombosis (and subsequent GA) if not followed. * Expressed importance on tobacco cessation, pt states she will comply. 2. Diabetes mellitus type 2 * Patient on metformin and and I will hold for now in light of potential contrast she may received with a left heart catheterization * Fair control * Resume metformin on 10/16 due to IV contrast w LHC. 3. Hyper eosinophilic syndrome * Patient is on prednisone daily * No evidence of adrenal crisis * PCP managing prednisone * Would recommend follow up with [facility] or Hematology as outpt.[] Discharge Diet: Low fat/ Low Cholesterol, 1800 Calorie Control Diet Discharge Activity: Return to Normal Activity Call your doctor if you observe: Shortness of breath, Chest pain Home Medications: Medications to take at Discharge Alendronate Sodium 70 mg PO Q7D 10/10/17 Citalopram [Celexa] 20 mg PO DAILY 10/10/17 Cyclobenzaprine 10 mg PO TID PRN 10/10/17 Diazepam [Valium] 5 mg PO BID PRN 10/10/17 Hydrochlorothiazide [Hctz] 25 mg PO DAILY 10/10/17 Levothyroxine Sodium 112 mcg PO DAILY 10/10/17 Montelukast Sodium [Singulair] 10 mg PO DAILY 10/10/17 Omeprazole 40 mg PO DAILY 10/10/17 Potassium Chloride [Klor-Con M20] 20 mg PO DAILY 10/10/17 traZODone [Desyrel] 100 mg PO DAILY 10/10/17 Aspirin E.C. [Ecotrin] 81 mg PO DAILY@0800 tablet 10/12/17 Atorvastatin Calcium [Lipitor] 80 mg PO QHS #30 tab 10/12/17 Clopidogrel Bisulfate [Plavix] 75 mg PO DAILY #30 tab 10/12/17 Metformin(XR) [Glucophage Xr] 500 mg PO DAILY #0 10/12/17 Metoprolol Tartrate [Lopressor (beta alisha)] 25 mg PO BID #60 tab 10/12/17 Following Prescrptions Were Given to Patient: Atorvastatin Calcium [Lipitor] 80 mg PO QHS #30 tab Clopidogrel Bisulfate [Plavix] 75 mg PO DAILY #30 tab Metoprolol Tartrate [Lopressor (beta alisha)] 25 mg PO BID #60 tab Other Amb Orders: Phase II, Outpatient Cardiac Rehab Location: None Selected Primary Care Physician: Maycol Jean MD [Primary Care Provider] - Within 2 Weeks Please Follow Up With: Wilbur Ramirez MD When: 2 weeks Disposition: Home Minutes spent on discharge:: 32 Patient Condition:: Good Medical Necessity - Tobacco Use Smoking Status: Current every day smoker Tobacco Use: Cigarettes Meaningful Use Info Meaningful Use Diagnoses (Choose all that apply): AMI - AMI Aspirin given w/in 24hrs of arrival?: Yes ASA at discharge?: Yes Statins at discharge?: Yes Catarino/ARB at discharge?: No Reason Catarino/ARB not ordered:: Hypotension Beta Alisha at discharge?: Yes Done w/ Acute GA measure.: Yes Code Visit Inpatient E&M: 70986 Disch Hosp
[2017-10-12 14:55] LABS: Bedside Glucose 195 mg/dL (70-110)
== END 2017-10-12 10:45 | disposition home or self-care (01) | DRG 247 ==
LOC: PCU 10-11 08:49 → ICU 10-11 12:58 → PCU 10-11 13:45
PROVIDERS: Internal Medicine Cardiovascular Disease; Family Provider Family Medicine; PCP Family Medicine
DX: I21.4 Non-ST elevation (NSTEMI) myocardial infarction (principal); F17.210 Nicotine dependence, cigarettes, uncomplicated; E11.9 Type 2 diabetes mellitus without complications; Z79.84 Long term (current) use of oral hypoglycemic drugs; D72.1 Eosinophilia; I25.110 Atherosclerotic heart disease of native coronary artery with unstable angina pectoris; E03.9 Hypothyroidism, unspecified; J45.909 Unspecified asthma, uncomplicated; K21.9 Gastro-esophageal reflux disease without esophagitis
CPT/HCPCS: 36415; 71045; 80048; 80053; 80061; 81001; 82550; 82962; 84484; 85027; 85347; 85610; 85730; 92928; 92929; 93005; 93306; 93458; 94640; 99152; 99153; 99406; J7030; C1725; C1769; C1874; C1887; C9600; C9601; Q9967

== ENCOUNTER → 2018-01-03 09:33 | Outpatient (CLI) | payer BC, SELFPAY ==
[2018-01-03 12:21] LABS: Anion Gap 7 (5-15); BUN 19 mg/dL (7-18); BUN/Creat Ratio 20.4 RATIO (10-20); Chloride 102 mmol/L (98-107); Creatinine, Serum 0.93 mg/dL (0.55-1.02); EST Glomerular Filtration Rate 67 mL/min (>60); Est Glom Filt Rate - Afr Amer 81 mL/min (>60); Glucose 119 mg/dL (74-106); Sodium Level 139 mmol/L (136-145)
[2018-01-03 12:24] LABS: Hemoglobin A1c 6.1 % (4.2-6.3)
[2018-01-03 12:26] LABS: T4 Free Direct 1.43 ng/dL (0.76-1.46); Thyroid Stim Hormone (TSH) 0.43 uIU/mL (0.358-3.74)
[2018-01-03 12:33] LABS: Microalbumin,Random Urine < 5.0 mg/L (NO RANGE EST.)
== END ==
PROVIDERS: Family Provider Internal Medicine; PCP Internal Medicine; Visit Provider Internal Medicine
DX: E11.9 Type 2 diabetes mellitus without complications (principal); E03.9 Hypothyroidism, unspecified
CPT/HCPCS: 36415; 80048; 82043; 82570; 83036; 84439; 84443

== ENCOUNTER → 2019-03-24 10:47 | Outpatient (CLI) | payer BC, SELFPAY ==
[2019-02-14 14:11] VITALS: BMI 29.4
[2019-03-24 12:39] LABS: Hematocrit 44.3 % (37-47); Hemoglobin 14.8 g/dL (12.0-15.0); Mean Corp Hgb Conc 33.4 g/dL (32-36); Mean Corpuscular Hgb 32.4 pg (27.0-32.0); Mean Corpuscular Volume 96.9 fL (81-99); Mean Platelet Vol. 11.2 fl (6.2-12.0); Platelet Count 188 K/mm3 (150-450); RBC Distribution Width CV 13.3 % (11.6-14.6); RBC Distribution Width SD 47.9 fl (35.1-43.9); Red Blood Count 4.57 M/mm3 (4.2-5.4); White Blood Count 7.9 K/mm3 (4.4-11.0)
[2019-03-24 13:14] LABS: ALB/GLOB Ratio 1.1 RATIO (0.9-2.4); AST(SGOT) 13 U/L (15-37); Alanine Aminotransfer ALT/SGPT 23 U/L (13-56); Albumin, Serum 3.6 g/dL (3.2-5.0); Alkaline Phosphatase 49 U/L (45-117); Anion Gap 5 (5-15); BUN 14 mg/dL (7-18); BUN/Creat Ratio 13.7 RATIO (10-20); Calcium,Total 9.2 mg/dL (8.5-10.1); Chloride 104 mmol/L (98-107); Cholesterol 139 mg/dL (200); Creatinine, Serum 1.02 mg/dL (0.55-1.02); EST Glomerular Filtration Rate 60 mL/min (>60); Est Glom Filt Rate - Afr Amer 72 mL/min (>60); Globulin 3.2 g/dL (2.2-4.2); Glucose 112 mg/dL (74-106); High Density Lipoprotein 79 mg/dL; Potassium 3.5 mmol/L (3.5-5.1); Protein, Total 6.8 g/dL (6.4-8.2); Sodium Level 139 mmol/L (136-145); Thyroid Stim Hormone (TSH) 2.05 uIU/mL (0.358-3.74); Triglycerides 70 mg/dL; Very Low Density Lipoprotein 14 mg/dL (5-40)
[2019-03-24 13:25] LABS: Microalbumin,Random Urine < 5.0 mg/L (NO RANGE EST.)
== END ==
PROVIDERS: Family Provider Internal Medicine; PCP Internal Medicine; Visit Provider Nurse Practitioner Family
DX: E11.9 Type 2 diabetes mellitus without complications (principal); E78.5 Hyperlipidemia, unspecified; E03.9 Hypothyroidism, unspecified; I25.10 Atherosclerotic heart disease of native coronary artery without angina pectoris
CPT/HCPCS: 36415; 80053; 80061; 82043; 82570; 84443; 85027

== ENCOUNTER → 2019-06-05 11:31 | Outpatient (CLI) | payer OTHER, SELFPAY ==
[2019-06-05 11:07] VITALS: BMI 29.4
[2019-06-05 12:25] LABS: Erythrocyte Sedimentation Rate 2 mm/hr (0-30)
[2019-06-05 12:55] LABS: Anion Gap 5 (5-15); BUN 11 mg/dL (7-18); BUN/Creat Ratio 11.1 RATIO (10-20); Calcium,Total 9.6 mg/dL (8.5-10.1); Chloride 101 mmol/L (98-107); EST Glomerular Filtration Rate 61 mL/min (>60); Est Glom Filt Rate - Afr Amer 74 mL/min (>60); Glucose 142 mg/dL (74-106); Potassium 4.1 mmol/L (3.5-5.1); Rheumatoid Factor < 10.0 IU/mL (<15); Sodium Level 138 mmol/L (136-145)
[2019-06-07 11:35] LABS: CCP IgG Antibodies 9 units (0-19)
== END ==
PROVIDERS: PCP Internal Medicine; Referring Provider Internal Medicine; Visit Provider Internal Medicine
DX: E11.9 Type 2 diabetes mellitus without complications (principal); M19.90 Unspecified osteoarthritis, unspecified site
CPT/HCPCS: 36415; 80048; 85652; 86200; 86431

== ENCOUNTER → 2019-11-14 11:08 | Outpatient (CLI) | payer OTHER, SELFPAY ==
[2019-11-14 10:43] VITALS: BMI 28.3
[2019-11-14 12:46] LABS: AST(SGOT) 12 U/L (15-37); Alanine Aminotransfer ALT/SGPT 25 U/L (13-56); Albumin, Serum 3.8 g/dL (3.2-5.0); Alkaline Phosphatase 52 U/L (45-117); Bilirubin, Direct 0.14 mg/dL (0.00-0.30); Cholesterol 135 mg/dL (200); Globulin 2.8 g/dL (2.2-4.2); High Density Lipoprotein 64 mg/dL; Protein, Total 6.6 g/dL (6.4-8.2); Triglycerides 88 mg/dL; Very Low Density Lipoprotein 18 mg/dL (5-40)
[2019-11-14 12:49] LABS: Hemoglobin A1c 5.9 % (3.8-5.6)
[2019-11-14 12:52] LABS: Amphetamine Urine VISTA NEGATIVE (<1000 ng/mL); Barbiturate Urine VISTA NEGATIVE (< 200 ng/mL); Benzodiazepine Urine VISTA NEGATIVE (< 200 ng/mL); Cocaine Urine VISTA NEGATIVE (< 300 ng/mL); Ecstacy Urine VISTA NEGATIVE (< 500 ng/mL); Methadone Urine VISTA NEGATIVE (< 300 ng/mL); PCP Urine VISTA NEGATIVE (< 25 ng/mL); THC Urine VISTA NEGATIVE (< 50 ng/mL); Vista UDS pH Range 6
[2019-11-14 13:10] LABS: Thyroid Stim Hormone (TSH) 0.45 uIU/mL (0.358-3.74)
== END ==
PROVIDERS: Internal Medicine Cardiovascular Disease; PCP Internal Medicine; Referring Provider Nurse Practitioner Family; Visit Provider Nurse Practitioner Family
DX: E03.9 Hypothyroidism, unspecified (principal); E11.9 Type 2 diabetes mellitus without complications; F11.90 Opioid use, unspecified, uncomplicated; Z95.5 Presence of coronary angioplasty implant and graft
CPT/HCPCS: 36415; 80061; 80076; 80307; 83036; 84443

== ENCOUNTER → 2020-01-26 09:25 | Outpatient (CLI) | payer OTHER, SELFPAY ==
[2019-11-14 10:43] VITALS: BMI 28.3
== END ==
PROVIDERS: PCP Internal Medicine; Referring Provider Nurse Practitioner Family; Visit Provider Nurse Practitioner Family
DX: Z20.828 Contact with and (suspected) exposure to other viral communicable diseases (principal); R05 Cough
CPT/HCPCS: 87635; C9803; U0003

== ENCOUNTER → 2020-07-31 09:09 | Outpatient (CLI) | payer OTHER, SELFPAY ==
[2020-07-31 08:31] VITALS: BMI 26.5
--- NOTE | 2020-07-31 09:45 | RAD_ITS ---
HISTORY: Shortness of breath EXAM: XR Chest 2 Views: COMPARISON: October 11, 2017 FINDINGS: # of images incl. paperwork: 2 Cholecystectomy clips. Calcific plaque in the aortic arch Lungs are clear. Heart is not enlarged. No acute osseous pathology perceived. Pulmonary vascularity is distinct. No effusions. RAD/Chest PA and Lateral IMPRESSION: Normal. at [id number] Reported and signed by: Umesh Guillen MD Electronically Signed: Umesh Guillen MD at 22:16 EDT Tel , Service support ,
[2020-07-31 12:11] LABS: Absolute Lymphocyte Count 1.88 X10^3/uL (0.83-4.51); Absolute Neutrophil Count 5.2 X10^3/uL (2.0-7.7); Basophil# 0.09 X10^3/uL; Eosinophil# 1.02 X10^3/uL; Eosinophils% 11.4 % (0-5); Hematocrit 51.1 % (37-47); Hemoglobin 16.6 g/dL (12.0-15.0); Lymphocyte # 1.88 X10^3/ul (0.83-4.51); Mean Corp Hgb Conc 32.5 g/dL (32-36); Mean Corpuscular Hgb 31.8 pg (27.0-32.0); Mean Corpuscular Volume 97.9 fL (81-99); Mean Platelet Vol. 11.3 fl (6.2-12.0); Monocyte# 0.79 X10^3/uL; Monocyte% 8.8 % (0-10); NRBC Flagged by Analyzer 0 % (0-5); Neutrophil # 5.15 X10^3/uL (2.7-7.7); Neutrophil % 57.4 % (47-70); Platelet Count 212 K/mm3 (150-450); RBC Distribution Width CV 13.1 % (11.6-14.6); Red Blood Count 5.22 M/mm3 (4.2-5.4)
[2020-07-31 12:44] LABS: ALB/GLOB Ratio 1.1 RATIO (0.9-2.4); AST(SGOT) 14 U/L (15-37); Alanine Aminotransfer ALT/SGPT 29 U/L (13-56); Albumin, Serum 3.8 g/dL (3.2-5.0); Alkaline Phosphatase 52 U/L (45-117); Anion Gap 4 (5-15); BUN 16 mg/dL (7-18); BUN/Creat Ratio 16.6 RATIO (10-20); Calcium,Total 9.4 mg/dL (8.5-10.1); Chloride 104 mmol/L (98-107); Cholesterol 173 mg/dL (200); Creatinine, Serum 0.96 mg/dL (0.55-1.02); EST Glomerular Filtration Rate 63 mL/min (>60); Est Glom Filt Rate - Afr Amer 77 mL/min (>60); Globulin 3.5 g/dL (2.2-4.2); Glucose 127 mg/dL (74-106); High Density Lipoprotein 86 mg/dL; Potassium 4.5 mmol/L (3.5-5.1); Protein, Total 7.3 g/dL (6.4-8.2); Sodium Level 139 mmol/L (136-145); Thyroid Stim Hormone (TSH) 1.77 uIU/mL (0.358-3.74); Triglycerides 63 mg/dL; Very Low Density Lipoprotein 13 mg/dL (5-40)
== END ==
PROVIDERS: PCP Internal Medicine; Referring Provider Internal Medicine; Visit Provider Internal Medicine
DX: R06.02 Shortness of breath (principal); E03.9 Hypothyroidism, unspecified; E11.9 Type 2 diabetes mellitus without complications
CPT/HCPCS: 36415; 71046; 80053; 80061; 84443; 85025

== ENCOUNTER → 2020-09-04 09:32 | Outpatient (CLI) | payer OTHER, SELFPAY ==
[2020-09-04 08:57] VITALS: BMI 26.3
[2020-09-04 11:24] LABS: HIV - WCH Non-Reactive (Nonreactive); Hepatitis B Surface Antigen Non-Reactive (Nonreactive); Hepatitis C Antibody Non-Reactive (Nonreactive); Syphilis Antibodies Non-reactive
[2020-09-05 16:48] LABS: HSV 1 IgG < 0.91 index (0.00-0.90); HSV 2 IgG < 0.91 index (0.00-0.90)
[2020-09-06 20:08] LABS: Chlamydia By Nucleic Acid AMP Negative (Negative)
[2020-09-07 15:05] LABS: Gonococcus By Nucleic Acid AMP Negative (Negative)
== END ==
PROVIDERS: PCP Internal Medicine; Referring Provider Nurse Practitioner Women's Health; Visit Provider Nurse Practitioner Women's Health
DX: Z11.3 Encounter for screening for infections with a predominantly sexual mode of transmission (principal); Z20.2 Contact with and (suspected) exposure to infections with a predominantly sexual mode of transmission
CPT/HCPCS: 36415; 86695; 86696; 86703; 86780; 86803; 87340; 87491; 87591

== ENCOUNTER → 2020-09-12 10:56 | Outpatient (CLI) | payer OTHER, SELFPAY ==
[2020-09-12 09:58] VITALS: BMI 26.6
[2020-09-12 10:58] LABS: Bacteria 0 SEEN /hpf (None Seen); Mucous, Urine 0 SEEN /hpf (<or=2+); Red Blood Cells-Urine 0 SEEN /hpf (0-5); White Blood Cells 0 SEEN /hpf (0-5)
[2020-09-12 12:15] LABS: Color, Urine Yellow (Yellow); Glucose, Dipstick Normal (Normal); Ketone-Dipstick Negative (Negative); Leukocyte Esterase-Dipstick Negative /ul (Negative); Nitrite-Dipstick Negative (Negative); Occult Blood-Urine Negative /ul (Negative); Protein-Dipstick Negative (Negative); Urine Bilirubin Dipstick Negative (Negative); Urine Clarity Sl. Cloudy (Clear); Urine Urobilinogen Normal (Normal)
[2020-09-12 12:25] LABS: Squamous Epithelial Cells - UA 0-5 SEEN /hpf (5-10)
== END ==
PROVIDERS: Visit Provider Nurse Practitioner Family
DX: R30.0 Dysuria (principal)
CPT/HCPCS: 81001; 87086

== ENCOUNTER 2021-02-10 19:12 | Emergency (ER) | payer MEDICAID, SELFPAY ==
[2021-02-10 19:14] VITALS: BP 156/74; PULSE 93; RESP 14; TEMP 36.2; O2SAT 95; BMI 30.2
--- NOTE | 2021-02-10 21:26 | RAD_ITS ---
STUDY: X-RAY - RIGHT CLAVICLE REASON FOR EXAM: Female, 55 years old. Injury/Pain TECHNIQUE: 2 view(s) of the clavicle. COMPARISON: Chest x-ray dated JULY 31, 2020 FINDINGS: Normal clavicle. Normal acromioclavicular articulation. Normal visualized sternoclavicular articulation. Mild right glenohumeral joint space narrowing noted. Normal visualized pulmonary apex. RAD/Clavicle IMPRESSION: Normal x-ray examination of the clavicle. Electronically Signed: Juan J Nunez MD at 22:18 EDT , Service support ,
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
[2021-02-10 22:42] VITALS: BP 130/78; PULSE 78; RESP 12; O2SAT 98
== END 2021-02-10 22:43 | disposition home or self-care (01) ==
PROVIDERS: Emergency Provider Emergency Medicine; PCP Internal Medicine
DX: S40.011A Contusion of right shoulder, initial encounter (principal); S20.213A Contusion of bilateral front wall of thorax, initial encounter; S50.12XA Contusion of left forearm, initial encounter; S19.9XXA Unspecified injury of neck, initial encounter; Y04.0XXA Assault by unarmed brawl or fight, initial encounter; Y93.9 Activity, unspecified; Y92.9 Unspecified place or not applicable; E66.9 Obesity, unspecified; Z68.30 Body mass index [BMI] 30.0-30.9, adult; E03.9 Hypothyroidism, unspecified; E11.9 Type 2 diabetes mellitus without complications; F32.A Depression, unspecified; F41.9 Anxiety disorder, unspecified; I25.2 Old myocardial infarction; I25.5 Ischemic cardiomyopathy; G89.29 Other chronic pain; D72.119 Hypereosinophilic syndrome [HES], unspecified; I25.10 Atherosclerotic heart disease of native coronary artery without angina pectoris; J45.909 Unspecified asthma, uncomplicated; M19.90 Unspecified osteoarthritis, unspecified site; G47.00 Insomnia, unspecified; Z87.01 Personal history of pneumonia (recurrent); Z95.5 Presence of coronary angioplasty implant and graft; Z79.82 Long term (current) use of aspirin; Z79.84 Long term (current) use of oral hypoglycemic drugs; Z79.899 Other long term (current) drug therapy; F17.210 Nicotine dependence, cigarettes, uncomplicated
CPT/HCPCS: 73000; 99282

== ENCOUNTER 2021-04-15 09:00 | Outpatient (RCR) | payer OTHER, SELFPAY ==
--- NOTE | 2021-04-15 09:00 | BH.COMM ---
Communication Note - Communication with Client Communication Note: Pt completed initial paperwork this AM. Verbal order to admit to IOP level of care with dx of MDD f33.[address] Corrigan.
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
[2021-04-16 10:08] VITALS: BP 137/79; PULSE 74
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
--- NOTE | 2021-04-16 11:31 | BH.DR.ITP ---
Initial Treatment Plan Patient Information Visit Information: ADMISSION DATE: EXPECTED LOS: 4-6 weeks Problems/Symptoms Problem #1:: Anxiety Symptom:: Worry, panic attacks, rumination, hypervigilance, nightmares, flashbacks, avoidance, reexperiencing Problem #2:: Depression Symptom:: Sadness, hopelessness, worthlessness, anhedonia, apathy, biological disruption of sleep and appetite, decreased concentration, passive thoughts of , passive suicidal ideation
--- NOTE | 2021-04-21 10:18 | BH.COMM ---
Communication Note - Communication with Client Communication Note: Pt called stating that her brother and that she would not be in the program this week. Planning on returning the week of 04/28/21.
--- NOTE | 2021-04-28 10:20 | BH.COMM ---
Communication Note - Communication with Client Communication Note: Did not show or call off for group today. Called to leave message however VM full
--- NOTE | 2021-04-29 10:20 | BH.COMM_ITS ---
Communication Note - Communication with Client Communication Note: Did not show or call off for group today. Pt has not a ttended group in over a week. Left message stating if she does not return call to discuss attendance by 2pm she will be discharged from [facility].
== END 2021-04-29 14:17 | disposition home or self-care (01) ==
LOC: BHIOP 09:00
PROVIDERS: PCP Internal Medicine; Referring Provider Psychiatry & Neurology Psychiatry; Visit Provider Psychiatry & Neurology Psychiatry
DX: F33.2 Major depressive disorder, recurrent severe without psychotic features (principal); E11.9 Type 2 diabetes mellitus without complications; F43.10 Post-traumatic stress disorder, unspecified; F17.210 Nicotine dependence, cigarettes, uncomplicated; J45.909 Unspecified asthma, uncomplicated; Z79.899 Other long term (current) drug therapy; F12.90 Cannabis use, unspecified, uncomplicated
CPT/HCPCS: 90792; S9480; T1002; 90832

== ENCOUNTER → 2023-11-02 | Outpatient (CLI) | payer MEDICAID, SELFPAY ==
[2023-11-02 09:01] LABS: Absolute Neutrophil Count 6.2 X10^3/uL (2.0-7.7); Basophil# 0.07 X10^3/uL; Basophil% 0.7 % (0-1); Eosinophil# 0.48 X10^3/uL; Eosinophils% 4.7 % (0-5); Hematocrit 45.9 % (37-47); Hemoglobin 15.2 g/dL (12.0-15.0); Lymphocyte % 25.3 % (19-41); Mean Corp Hgb Conc 33.1 g/dL (32-36); Mean Corpuscular Hgb 30.1 pg (27.0-32.0); Mean Corpuscular Volume 90.9 fL (81-99); Mean Platelet Vol. 10.4 fl (6.2-12.0); Monocyte# 0.85 X10^3/uL; Monocyte% 8.3 % (0-10); NRBC Flagged by Analyzer 0 % (0-5); Neutrophil # 6.24 X10^3/uL (2.7-7.7); Neutrophil % 60.6 % (47-70); Platelet Count 242 K/mm3 (150-450); RBC Distribution Width CV 15.2 % (11.6-14.6); RBC Distribution Width SD 50.5 fl (35.1-43.9); Red Blood Count 5.05 M/mm3 (4.2-5.4); White Blood Count 10.3 K/mm3 (4.4-11.0)
--- NOTE | 2023-11-02 09:02 | CT_ITS ---
STUDY: CT CHEST WITHOUT CONTRAST REASON FOR EXAM: Female, 58 years old. R91.8 RADIATION DOSAGE (If Supplied By Facility): CTDIvol = ( 15.96 ) mGy, DLP = ( 292.84 ) mGycm TECHNIQUE: Transaxial imaging was performed without the administration of intravenous contrast material. Individualized dose optimization techniques were used for this CT. COMPARISON: Comparison is made with prior study dated FINDINGS: CHEST The patient was originally scheduled for CT-guided biopsy of the infiltrate in the right lower lobe. The infiltrate has resolved. A tiny subcentimeter nodule persists. Further radiographic follow-up is recommended. Biopsy was not performed. CT/Chest without Contrast IMPRESSION: Biopsy was not performed due to the resolution of the previously seen infiltrate in the right lower lobe. Follow-up CT in 3 months is recommended. Electronically Signed: Jose Smith MD at 8:50 EDT ,
[2023-11-02 09:09] LABS: Prothrombin Time (Protime)PT. 12.7 SECONDS (11.7-14.9)
[2023-11-02 09:23] VITALS: BP 119/76; PULSE 68; RESP 14; TEMP 36.5; O2SAT 100; BMI 29.6
--- NOTE | 2023-11-02 10:17 | NURSING ---
After lawn service manager image taken for CT guided lung biopsy, procedure unable to be performed. Qi Holloway CNP spoke with patient. Patient verbalized understanding.
== END | disposition home or self-care (01) ==
PROVIDERS: PCP Internal Medicine
DX: R91.8 Other nonspecific abnormal finding of lung field (principal); D72.118 Other hypereosinophilic syndrome; R06.02 Shortness of breath; Z79.52 Long term (current) use of systemic steroids
CPT/HCPCS: 36415; 71250; 85025; 85610; J7050; A4216